=== PATIENT | male | born 1940 | race Caucasian/White ===

== ENCOUNTER 2019-09-22 09:29 | Inpatient (IN) | payer MEDICARE, BC, SELFPAY ==
[2019-09-22] VITALS (8 sets, daily range): BP systolic 145–160; BP diastolic 74–89; PULSE 66–104; RESP 17–21; TEMP 36.5–37.1; O2SAT 94–100
--- NOTE | ~2019-09-22 | XR_ITS ---
EXAMINATION: XR chest port-a-cath/central DATE: 09/24/2019 11:11 INDICATION: Central line placement. TECHNIQUE: A single frontal view of the chest was obtained. COMPARISON: Chest single view 09/22/2019, CT abdomen and pelvis 09/22/2019 FINDINGS: There are bilateral perihilar interstitial and airspace opacities. No pleural effusion or p neumothorax. The heart size is normal. A right internal jugular central venous catheter is seen with tip at the superior cavoatrial junction. IMPRESSION: 1. Central line tip at superior cavoatrial junction. 2. Worsened diffuse lung disease, likely mild pulmonary edema. Reviewed, dictated and finalized at location A.
--- NOTE | ~2019-09-22 | XR_ITS ---
XR fl guide central line place 09/24/2019 11:03 Indication: Dialysis catheter insertion. Procedure: 3 fluoroscopic images. 8.8 seconds of fluoroscopy. Comparison: No prior studies for comparison. Findings: There is a dual-lumen large bore central venous catheter, tips near the cavoatrial junction . Please refer to procedural report for details. Impression: 1: Central venous catheter tips near the cavoatrial junction. Reviewed, dictated and finalized at location A. Impression: 1: Central venous catheter tips near the cavoatrial junction.
--- NOTE | ~2019-09-22 | US_ITS ---
EXAMINATION: US biopsy renal DATE: 09/26/2019 13:42 INDICATION: Acute kidney injury. TECHNIQUE: The procedure including the risks, benefits, and alternatives was discussed with the patie nt. Risks discussed included bleeding and infection. The patient understood the risks and agreed to p roceed. A timeout was performed to verify the patient's name, date of , and procedure to be p erformed. The skin overlying the left kidney was prepped and draped in usual sterile fashion. Anest hetic was administered with 1% lidocaine subcutaneously. An 18 gauge core biopsy needle was then use d to obtain 3 core biopsy specimens under continuous sonographic guidance. The entry site was cleaned and dressed. There were no immediate complications. FINDINGS: Ultrasound images demonstrate the needle in the kidney. IMPRESSION: 1. Ultrasound-guided random left kidney core needle biopsy. Reviewed, dictated and finalized at location A.
--- NOTE | ~2019-09-22 | CT_ITS ---
EXAMINATION: CT abdomen pelvis wo con DATE: 09/22/2019 10:59 INDICATION: Abdominal pain and cough TECHNIQUE: Computed tomography (CT) of the abdomen and pelvis was performed without intravenous contr ast. The dose-length product (DLP) was 1143.02 mGy-cm. Automated exposure control and iterative recon struction technique were employed. COMPARISON: 09/20/2017 FINDINGS: There are small pleural effusions. Cardiomegaly is noted. There is interlobular septal thic kening of the visualized lung bases with patchy groundglass and nodular opacities. There is calcified coronary artery atherosclerosis. Also noted is calcification of the mitral valve. The liver, spleen, pancreas, gallbladder, and left adrenal gland are normal. 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 Cysts of the kidneys measure up to 2.5 cm on the right. No pathologically enla rged abdominal or pelvic lymph nodes are identified. There is no free intraperitoneal gas or evidence of bowel obstruction. The prostate is markedly enlarged. There is circumferential thickening of the bladder wall. A small volume of pelvic ascites is present. There is a small right inguinal hernia con taining a short segment of nonobstructed small bowel. Also noted is an umbilical hernia containing a short segment of nonobstructed small bowel. There is severe lumbar spondylosis. There are bridging os teophytes at multiple levels in the visualized thoracic spine, consistent with diffuse idiopathic ske letal hyperostosis (DISH). IMPRESSION: 1. Small pleural effusions, interlobular septal thickening, and groundglass and nodular opacities of the visualized lung bases, suggestive pulmonary edema. 2. Small umbilical and right inguinal hernias containing short segments of nonobstructed small bowel. 3. Circumferential bladder wall thickening, likely reflecting chronic outlet obstruction. Reviewed, dictated and finalized at location A. IMPRESSION: 1. Small pleural effusions, interlobular septal thickening, and groundglass and nodular opacities of the visualized lung bases, suggestive pulmonary edema. 2. Small umbilical and right inguinal hernias containing short segments of nono bstructed small bowel. 3. Circumferential bladder wall thickening, likely reflecting chronic outlet ob struction.
--- NOTE | ~2019-09-22 | XR_ITS ---
EXAMINATION: XR chest 1V portable INDICATION: Cough TECHNIQUE: Portable AP chest at 1004 hours COMPARISON: 03/18/2016 FINDINGS: There are minimal airspace opacities of the lung bases and right upper lung zone. No pleura l effusion or pneumothorax is identified. The cardiomediastinal silhouette is normal for technique. IMPRESSION: 1. Airspace opacities of the lung bases and right upper lung zone, consistent with atelectasis versus pneumonia. Reviewed, dictated and finalized at location A. IMPRESSION: 1. Airspace opacities of the lung bases and right upper lung zone, consistent w ith atelectasis versus pneumonia.
--- NOTE | ~2019-09-22 | US_ITS ---
US renal BI DATE: 09/22/2019 15:19 INDICATION: Elevated serum creatinine TECHNIQUE: Real-time imaging of the kidneys and urinary bladder COMPARISON: 09/22/2019 CT abdomen pelvis noncontrast examination FINDINGS: The right kidney measures 12.2 cm length, the left kidney 12.1 cm. There is a 2.5 cm cyst of the right kidney. 8mm left renal cyst is suggested. No hydronephrosis of either kidney is evident. Bladder is relatively evacuated, with catheter in place. There is prostate enlargement. IMPRESSION: No evidence of hydronephrosis of either kidney Renal cysts Prostate enlargement Reviewed, dictated and finalized at Location A. Reviewed, dictated and finalized at location A.
[2019-09-22 09:56] LABS: Basophils Percent Auto 0.4 % (0.2-1.2); Eosinophils Absolute Auto 0.2 K/mm3 (0-0.3); Eosinophils Percent Auto 1.9 % (0-4.4); Hematocrit 34.4 % (42.0-52.0); Hemoglobin 11.6 g/dL (14.0-18.0); Immature Granulocyte Absolute 0.02 K/mm3 (0.00-0.031); Immature Granulocyte Percent A 0.2 % (0-0.5); Lymphocytes Absolute Auto 0.98 K/mm3 (0.9-3.2); Lymphocytes Percent Auto 10.9 % (18.3-44.2); Mean Corpuscular HGB Conc 33.7 g/dl (32-36); Mean Corpuscular Hemoglobin 29.6 pg (26-34); Mean Corpuscular Volume 87.8 fl (80-100); Mean Platelet Volume 10.7 fl (7.4-10.4); Monocytes Absolute Auto 1.1 K/mm3 (0.1-0.6); Monocytes Percent Auto 11.9 % (2.6-8.5); Neutrophils Absolute Auto 6.7 K/mm3 (1.3-6.7); Neutrophils Percent Auto 74.7 % (45.5-73.1); Platelet Count Result 192 k/mm3 (150-375); Red Blood Count 3.92 M/mm3 (4.6-6.20); Red Cell Distribution Width 12.7 % (11.5-14.5)
--- NOTE | 2019-09-22 10:05 | PC.NURSE ---
Pt attempted to provide urine sample. not enough for sample
[2019-09-22 10:06] LABS: Prothrombin Time 13.1 Seconds (11.1-14.7)
[2019-09-22 10:07] LABS: Partial Thromboplastin Time 36.8 SECONDS (22.3-36.8)
[2019-09-22 10:15] LABS: Alanine Aminotransferase 15 U/L (4-50); Albumin Level 4.1 g/dL (3.5-5.1); Alkaline Phosphatase 83 U/L (38-126); Aspartate Amino Transferase 21 U/L (17-59); Bilirubin,Total 0.6 mg/dL (0.2-1.3); Blood Urea Nitrogen 78 mg/dL (9-20); Calcium 8.4 mg/dL (8.4-10.2); Carbon Dioxide 17 mmol/L (22-30); Chloride 97 mmol/L (98-107); Estimated CRCL calculation 5 ml/min; Estimated Glomerular Filt Rate 4; Glucose 114 mg/dL (75-110); Lipase 369 U/L (23-300); Potassium 5.5 mmol/L (3.4-5.0); Sodium 132 mmol/L (137-145)
[2019-09-22 10:16] LABS: Lactic Acid Reflex 1.5 mmol/L (0.7-2.1)
--- NOTE | 2019-09-22 10:36 | ED.URI ---
HPI - URI/Sore Throat General Chief Complaint: Upper Respiratory Infection Stated Complaint: N/V, cough and cold symptoms Time Seen by Provider: 09/22/19 09:32 Source: RN notes reviewed History of Present Illness HPI Narrative: Patient presents emergency department from home for nausea vomiting. Patient states symptoms began 2 days ago. He states yesterday he had several episodes of emesis. States he is also had a mild nonproductive cough and rhinorrhea. He denies any fevers or chills sore throat abdominal pain diarrhea or any other symptoms. Related Data Allergies Allergy/AdvReac Type Severity Reaction Status Date / Time No Known Allergies Allergy Unverified 09/22/19 09:40 Review of Systems Review of Systems: Narrative: Gen.: Denies fevers or chills ENT: Reports congestion, denies sore throat Respiratory: Denies shortness of breath reports cough CV: Denies chest pain or palpitations GI: Denies abdominal pain or diarrhea, reports nausea and vomiting Musculoskeletal: Denies back pain or muscle pain Neuro: Denies numbness, tingling, weakness or focal weakness Skin: Denies rash Except as documented, all other systems reviewed and negative [facility] Past Medical History Medical History (Updated 09/22/19 @ 13:30 by Cristóbal Menjivar DO) Acute kidney failure, unspecified Hypertension Type 2 diabetes mellitus without complication, without long-term current use of insulin Family History Family History (Updated 01/23/14 @ 07:13 by DOCTOR UNKNOWN) Father Hypertension Family history of coronary artery disease Social History Social History Smoking status: Smoker, status unknown Alcohol intake: current Gender identity (if verbalized by the patient): Male Exam Narrative: Exam Narrative: APPEARANCE: No acute distress, nontoxic, resting in bed EYES: PERRL HEENT: Normocephalic, atraumatic, oromucosa dry RESPIRATORY: No respiratory distress Clear to auscultation bilaterally with no rhonchi wheezing or rales. CARDIOVASCULAR: Regular rate and rhythm without murmurs rubs or gallops. ABDOMINAL: Soft, nontender, nondistended, no rebound or guarding MUSCULOSKELETAl: Moves all extremities. No clubbing, cyanosis or edema. NEURO: Awake and alert. Following commands, speech normal, no focal deficits SKIN:: Warm, dry. No rashes lesions or abrasions PSYCHIATRIC: Normal affect/mood, Course Course Emergency Course: Discussed with Dr. Nielsen presentation work-up. Dr. Nielsen came to emergency department to see the patient. At this time recommends patient receive Lasix 40 mg as the patient does appear to be in heart failure with no further IV fluids at this time. Request Kayexalate Discussed with Dr. Kang presentation work-up. Agrees with admission at this time Discussed with patient and family results of workup and diagnosis. Discussed need for admission. Patient and family understand and agree to current treatment plan Vital Signs Vital signs: Vital Signs Temperature 97.7 F 09/22/19 09:34 Pulse Rate 66 09/22/19 09:34 Respiratory Rate 21 H 09/22/19 09:34 Blood Pressure 160/74 H 09/22/19 09:34 Pulse Oximetry 98 09/22/19 09:34 Temperature 97.7 F 09/22/19 09:34 Pulse Rate 67 09/22/19 13:20 Respiratory Rate 17 09/22/19 13:20 Blood Pressure 154/83 H 09/22/19 13:20 Pulse Oximetry 97 09/22/19 13:20 MDM - URI/Sore Throat Lab Data Result diagrams: 09/22/19 09:48 09/22/19 09:48 Labs: Lab Results 09/22/19 09/22/19 09/22/19 Range/Units 09:48 09:48 09:48 WBC 9.0 (4.5-10.0) K/mm3 RBC 3.92 L (4.6-6.20) M/mm3 Hgb 11.6 L (14.0-18.0) g/dL Hct 34.4 L (42.0-52.0) % MCV 87.8 (80-100) fl MCH 29.6 (26-34) pg MCHC 33.7 (32-36) g/dl RDW 12.7 (11.5-14.5) % Plt Count 192 (150-375) k/mm3 MPV 10.7 H (7.4-10.4) fl Immature Gran % (Auto) 0.2 (0-0.5) % Neut %
--- NOTE | 2019-09-22 10:50 | PM.CNNEP ---
Assessment and Plan Assessment and plan (1) Acute kidney failure, unspecified: Code(s): N17.9 - Acute kidney failure, unspecified Status: Acute Assessment and Plan: Shane has acute kidney injury. He has a history of BPH but it does not sound like he had critical symptoms before all this started. The patient has some congestion poor appetite weakness and nausea. All of this could be because of the kidneys. He says he does see routinely and has blood in urine tests done and has never been told he any problems with his kidneys or with proteinuria. He did have a creatinine of 1.5 in 2018. It is quite early in his hospital stay, as he is still in the emergency room. So it is hard to say exactly what is causing his acute kidney injury. Possibilities include: Obstruction. He has BPH and so could have some obstruction. Possibly this happened gradually and slowly and so he has few symptoms from it. Vascular diseases. This is unlikely because he does not have any flank pain or elevation of liver enzymes. Intrinsic disease such as glomerulonephritis, Allergy.. We will check urine electrolytes urine eosinophils and urinalysis. Infiltrative diseases such as multiple myeloma could always be in the background. Pre renal azotemia is possible but it sounds like he must of had some kidney issues going on before Monday. It would be hard to believe that he had a creatinine of 1.5 on and 13 now. (2) Type 2 diabetes mellitus without complication, without long-term current use of insulin: Code(s): E11.9 - Type 2 diabetes mellitus without complications Status: Acute Assessment and Plan: The patient sugars have been better lately. He is on metformin. Likely he stopped taking it 2 days ago and is lactic acid is normal. (3) Hypertension: Code(s): I10 - Essential (primary) hypertension Status: Acute Assessment and Plan: Blood pressure is well controlled. (4) Benign non-nodular prostatic hyperplasia: Code(s): N40.0 - Benign prostatic hyperplasia without lower urinary tract symptoms Status: Acute Assessment and Plan: He does not have much in the way of symptoms here. We will see what his CT scan shows and what happens after the Gandhi is put in. (5) Hypothyroidism: Code(s): E03.9 - Hypothyroidism, unspecified Status: Acute Assessment and Plan: He is taking supplements for this. History of Present Illness Reason for Consult Consult date: 09/22/19 Chief Complaint Chief complaint: N/V, cough and cold symptoms History of Present Illness Narrative: Shane is a very pleasant gentleman has multiple medical problems including diabetes, hypertension, and hypothyroidism. The patient says that he was feeling well until Monday when he started having some congestion in his chest. He also had poor appetite and just general feeling of weakness. He says that he usually drinks 48 oz of water soon as he wakes up however on Monday morning he did not drink this because he had mild nausea and was not sure he could keep it down. He has not had much to drink or eat since then. He has continued to have the congestion. He coughs a little bit and brings up mucus but nothing bloody or dark. He has taken his temperature 0 several times over the weekend and he has not had a fever. He came to the ER today because he was afraid would get worse. In the ER he was evaluated found to have a creatinine of 13. The patient denies any bloody urine, foamy urine, kidney stones, or bladder infections. He has been urinating pretty well but not a whole lot over the last couple of days. He denies any hemoptysis, epistaxis, sores in his mouth, skin rash, malar rash, or joint pains. He says that he has not been taking his blood blood pressure or diabetes medications in last 2 days. His diabetes has been well controlled. He is just on oral agents for this. His blood pressure
--- NOTE | 2019-09-22 11:11 | ECG_ITS ---
Measurements Intervals [place] Rate: 70 P: 88 DE: 215 QRS: -25 QRSD: 84 T: 1 QT: 426 QTc: 460 Interpretive Statements SINUS RHYTHM WITH FIRST DEGREE AV BLOCK BORDERLINE T WAVE ABNORMALITY- INFERIOR LEADS BASELINE ARTIFACT- I, II, AVF ABNORMAL ECG Electronically Signed On 09-22-2019 15:04:10 CDT by Jose L Kenney D.O.
[2019-09-22] MEDS: SODIUM CHLORIDE 0.9% IV 1,000 ML 999 ML IV CONT (11:25)
[2019-09-22 11:34] LABS: Add Urine Microscopic? YES; Appearance Urine Clear (Clear); Bacteria Urine Trace /hpf; Bilirubin Urine Negative (Negative); Blood Urine 2+ (Negative); Color Urine Straw (Yellow); Glucose Urine UA 1+ mg/dL (Negative); Ketones Urine Negative (Negative); Leukocyte Esterase Ur Negative LEU/UL (Negative); Nitrate Urine Negative (Negative); Protein Urine 2+ mg/dL (Negative); RBC Urine 51-75 /hpf (0-2); Specific Grav Ur 1.011 (1.001-1.035); Urobilinogen Urine Negative mg/dL (<2.0); WBC Urine 0-3 /hpf
[2019-09-22 11:40] LABS: NT Pro B Type Natriuretic Pept 7630 PG/ML (5-100); Troponin I 0.012 ng/mL (0.000-0.034)
[2019-09-22] MEDS: SODIUM POLYSTYRENE SULFONONATE 15 GM/60 ML BTL 30 GM PO ×2 (11:43→22:11)
[2019-09-22] MEDS: FUROSEMIDE INJ 40 MG/4 ML VIAL IV PUSH (11:44)
[2019-09-22 12:01] LABS: Erythrocyte Sedimentation Rate 61 mm/hr (0-20)
[2019-09-22 13:13] LABS: Creatine Kinase 177 U/L (55-170)
--- NOTE | 2019-09-22 13:45 | ADMGEN ---
This patient, Shane Galdamez, was admitted to 3 Med Surg Room 331-01. Patient/family oriented to hospital policies and general routines including ID bracelet, bed and alarms, visiting hours, pain management, procedures, bathroom and other care routines, personal items, smoking policy, room service/diet, and visiting hours. Valuables list has been completed. Information on how to activate the Rapid Response Team has been discussed. Patient/Family are encouraged to report perceived risks to care and to ask questions if they do not understand what they are told or what they should do.
[2019-09-22 16:42] LABS: Blood Urea Nitrogen 78 mg/dL (9-20); Calcium 7.8 mg/dL (8.4-10.2); Carbon Dioxide 16 mmol/L (22-30); Chloride 98 mmol/L (98-107); Estimated CRCL calculation 5 ml/min; Estimated Glomerular Filt Rate 4; Glucose 100 mg/dL (75-110); Potassium 6.1 mmol/L (3.4-5.0); Sodium 132 mmol/L (137-145)
--- NOTE | 2019-09-22 18:10 | PM.IMHP ---
H&P: HPI History of Present Illness Chief complaint: Acute renal failure/hyperkalemia/CHF Narrative: Shane Galdamez is a 79 year old male who has not had any previous history of congestive heart failure. The patient does have seasonal allergies and typically gets injections. The patient has been having a lot of postnasal drainage and has been coughing. No fever chills or sore throat. Patient stated that Monday night he was vomiting and Monday he slept on and off most of the day when he woke up he had 1 episode of emesis. His appetite has been poor. He also had some diarrhea on Monday as well. Patient has had poor oral intake. He denies any previous history of any kidney disease.Was found to be 5.5 and is now 6.1. Creatinine 3.0 and now 3.10. Nephrology has seen the patient today. patient was given Kayexalate x2. He was given Lasix x1. He was given 1 L of IV fluids. Patient no longer has any nausea or vomiting. No evidence of hydronephrosis of either kidney. Renal cyst. Prostate enlargement. The patient denies having any problems with his prostate in the past. Airspace opacities in lung bases and right upper lobe lung zone consistent with atelectasis versus pneumonia. Patient was tested for covid 19. Date of service 09/22/2019. Review of Systems Review of Systems: All systems reviewed & are unremarkable except as noted in HPI and below Constitutional: Constitutional: Reports as per HPI and Reports no additional constitutional complaints Eyes: Eyes: Reports as per HPI and Reports no additional eye complaints ENT: Reports system reviewed and no additional complaints, except as documented and Reports Normal hearing present Cardiovascular: Cardiovascular: Reports no additional cardiovascular complaints Respiratory: Respiratory: Reports no additional respiratory complaints and Reports no additional respiratory complaints Gastrointestinal: Gastrointestinal: Reports as per HPI and Reports no additional gastrointestinal complaints Musculoskeletal: Musculoskeletal: Reports no additional musculoskeletal complaints Integumentary/Breasts: Skin/Breast: Reports system reviewed and no additional complaints, except as docu and Reports as per HPI Neurologic: Reports system reviewed and no additional complaints, except as documented, Reports as per HPI and Reports Normal hearing present Psychiatric: Psychiatric: Reports no additional psychiatric complaints and Reports as per HPI Endocrine: Endocrine: Reports no additional endocrine complaints Hematologic/Lymphatic: Hematologic/Lymphatic: Reports no additional hematologic/lymphatic complaints Allergic/Immunologic: Allergic/Immunologic: Reports no additional allergic/immunologic complaints PMFSH Past Medical History Medical History (Updated 09/22/19 @ 18:47 by Divya Rick NP) Acute kidney failure, unspecified Heart murmur Hypertension Type 2 diabetes mellitus without complication, without long-term current use of insulin Surgical History Surgical History (Updated 09/22/19 @ 18:23 by Divya Rick NP) H/O local excision of skin lesion 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 Unsure which type of cancer. S/P appendectomy S/P arthroscopic surgery of right knee S/P tonsillectomy and adenoidectomy Family History Family History Father Hypertension Family history of coronary artery disease Social History Social History (Updated 09/22/19 @ 18:25 by Divya Rick NP) Social History: The patient lives with his and he desires to have her as the durable power securities attorney for healthcare. He desires to be a full code. They have 3 children together. He is retired from the [employer] system. Patient used to smoke a pipe but stated he did and ?inhale . He denies any alcohol, marijuana use, or illicit drugs. He said he stop smoking a pipe in the 80s. Smoking status: Current every day smoker Tobacco type: pip
--- NOTE | 2019-09-22 21:30 | PC.NURSE ---
Spoke with Dr. Mathis about consult order. Physician requested renal US and asked if patient had carias. Relayed shift report of patient being continent and had been straight cathed in ER with bloody urine. This nurse was not informed that carias had been placed in ER. After reviewing the chart found renal US had already been ordered by Dr. Nielsen. Cancelled order by Dr. Mathis.
[2019-09-22 22:29] LABS: Blood Urea Nitrogen 83 mg/dL (9-20); Calcium 7.5 mg/dL (8.4-10.2); Carbon Dioxide 15 mmol/L (22-30); Chloride 98 mmol/L (98-107); Estimated CRCL calculation 5 ml/min; Estimated Glomerular Filt Rate 4; Glucose 128 mg/dL (75-110); Potassium 5.9 mmol/L (3.4-5.0); Sodium 128 mmol/L (137-145)
[2019-09-23] VITALS (12 sets, daily range): BP systolic 138–153; BP diastolic 69–77; PULSE 70–83; RESP 16–18; TEMP 36.4–36.9; O2SAT 94–97
--- NOTE | 2019-09-23 | ECHO_ITS ---
Patient Info Name: Shane Galdamez Age: 79 years : 1940 Gender: Male Ht: 70 in Wt: 209 lbs BSA: 2.19 m2 HR: 71 bpm BP: 150 / 69 mmHg Technical Quality: Fair Exam Date: 09/23/2019 1:55 PM Exam Location: [facility] Patient Status: Inpatient Admit Date: 09/22/2019 Staff Ordering Physician: Divya Rick NP Pct: Ca Márquez RDCS Attending Provider: Roxanna Wood PA-C Referring Physician: Merline SUNSHINE; Exam Type: CA echo doppler color flow Study Info Indications I50.40 - Unspecified combined systolic (congestive) and diastolic (congestive) heart failure R01.1 - Cardiac murmur, unspecified Complete two-dimensional, color flow and Doppler transthoracic echocardiogram is performed. Summary 1. Left ventricular chamber dimension is normal. 2. Left ventricular systolic function is normal, estimated at 65-70%. 3. The left ventricular diastolic function is abnormal. 4. E/e' 26 is significantly elevated. 5. Left atrial chamber dimension is mildly enlarged. 6. There is severe aortic valve sclerosis. 7. There is moderate aortic valve stenosis based on a peak velocity of 352 cm/s, mean gradient of 21 mmHg, and aortic valve area of 2.5 cm2. 8. The mitral valve has severely calcified posterior annulus. 9. There is mild mitral valve regurgitation. 10. There is trace tricuspid valve regurgitation. 11. Moderate pulmonary hypertension, estimated pulmonary arterial systolic pressure is 50 mmHg. Left Ventricle E/e' 26 is significantly elevated. Left ventricular chamber dimension is normal. Left ventricular systolic function is normal, estimated at 65-70%. The left ventricular diastolic function is abnormal. Right Ventricle Right ventricular chamber dimension is normal. Right ventricular systolic function is normal. Left Atria Left atrial chamber dimension is mildly enlarged. Right Atria Right atrial chamber dimension is normal. Aortic Valve There is moderate aortic valve stenosis based on a peak velocity of 352 cm/s, mean gradient of 21 mmHg, and aortic valve area of 2.5 cm2. Probably trileaflet aortic valve. The aortic valve is not well visualized. There is severe aortic valve sclerosis. There is no aortic valve regurgitation. Pulmonic Valve There is no pulmonic regurgitation. Mitral Valve The mitral valve has severely calcified posterior annulus. There is no mitral valve stenosis. There is mild mitral valve regurgitation. Tricuspid Valve There is trace tricuspid valve regurgitation. Moderate pulmonary hypertension, estimated pulmonary arterial systolic pressure is 50 mmHg. Pericardium/Pleural There is no pericardial effusion. Inferior Vena Cava Normal inferior vena cava with >50% collapse upon inspiration consistent with normal right atrial pressure, 5 mmHg. Aorta The aortic root size at the sinus of Valsalva is normal. Left Ventricular Outflow Tract Name Value Normal LVOT 2D LVOT Diameter 2.0 cm LVOT Doppler LVOT Peak Gradient 19 mmHg LVOT Mean Gradient 9 mmHg LVOT VTI
[2019-09-23 00:10] LABS: Free T4 Free Thyroxine Reflex 1.17 ng/dL (0.78-2.19)
[2019-09-23 00:49] LABS: Total Triiodothyronine (T3) 1.11 NG/ML (0.97-1.69)
[2019-09-23 02:43] LABS: Sodium Urine Random 100 meq/L
[2019-09-23 02:49] LABS: Total Protein Urine Random > 600 mg/dL
[2019-09-23] MEDS: LEVOTHYROXINE SODIUM 112 MCG TABLET PO (05:56)
[2019-09-23 06:25] LABS: Basophils Percent Auto 0.5 % (0.2-1.2); Eosinophils Absolute Auto 0.1 K/mm3 (0-0.3); Eosinophils Percent Auto 0.6 % (0-4.4); Hematocrit 37.3 % (42.0-52.0); Hemoglobin 11.8 g/dL (14.0-18.0); Immature Granulocyte Absolute 0.04 K/mm3 (0.00-0.031); Immature Granulocyte Percent A 0.5 % (0-0.5); Mean Corpuscular HGB Conc 31.6 g/dl (32-36); Mean Corpuscular Hemoglobin 29.2 pg (26-34); Mean Corpuscular Volume 92.3 fl (80-100); Mean Platelet Volume 10.6 fl (7.4-10.4); Monocytes Absolute Auto 1.2 K/mm3 (0.1-0.6); Monocytes Percent Auto 14.3 % (2.6-8.5); Neutrophils Absolute Auto 6.5 K/mm3 (1.3-6.7); Neutrophils Percent Auto 78.1 % (45.5-73.1); Platelet Count Result 174 k/mm3 (150-375); Red Blood Count 4.04 M/mm3 (4.6-6.20); Red Cell Distribution Width 12.9 % (11.5-14.5); White Blood Count 8.3 K/mm3 (4.5-10.0)
[2019-09-23 06:28] LABS: Blood Urea Nitrogen 86 mg/dL (9-20); Calcium 7.5 mg/dL (8.4-10.2); Carbon Dioxide 12 mmol/L (22-30); Chloride 98 mmol/L (98-107); Estimated CRCL calculation 5 ml/min; Estimated Glomerular Filt Rate 4; Glucose 127 mg/dL (75-110); Potassium 5.2 mmol/L (3.4-5.0); Sodium 128 mmol/L (137-145)
[2019-09-23 08:16] LABS: Glucose Point of Care 127 (65-105)
[2019-09-23 08:49] LABS: Glucose Point of Care 132 (65-105)
[2019-09-23] MEDS: AMLODIPINE BESYLATE 5 MG TABLET PO (08:52)
[2019-09-23 12:17] LABS: SARS-CoV-2 RNA PCR Negative
--- NOTE | 2019-09-23 12:23 | WPDURCON ---
Assessment and Plan Assessment and plan (1) Acute renal failure: Code(s): N17.9 - Acute kidney failure, unspecified Status: Acute Assessment and Plan: Does not appear to be urologic in origin. He had only 100 cc of residual when the Gandhi catheter was placed. Creatinine has not really improved with Gandhi catheter placement. He does not endorse significant BPH symptoms. He does not have hydronephrosis on ultrasound. Can continue Gandhi catheter for now to monitor urine output, but otherwise management of Gandhi per primary team. Urology Consult Note HPI Date Seen: 09/23/19 Requesting Physician: Roxanna Wood PA-C Primary Care Provider: Javier Gamez DO Consult Narrative Narrative: Shane Galdamez is a 79 year old male seen at the request of the hospitalist service here at [facility]. He has no other previous urologic history. He has been ill for the last several days with poor p.o. intake. This eventually prompted a visit to the emergency room. He was found to have hyperkalemia and a creatinine of 13. A Gandhi catheter was placed with only 100 cc residual. He does not endorse BPH symptoms. He states he voids well. He does not have a slow stream or history of urinary retention. His creatinine has not really improved with Gandhi catheter placement. Nephrology has been consulted. Review of Systems Review of Systems: All systems reviewed & are unremarkable except as noted in HPI and below Constitutional: Constitutional: Reports weakness Cardiovascular: Cardiovascular: Denies chest pain Respiratory: Respiratory: Reports cough and Reports dyspnea Gastrointestinal: Gastrointestinal: Reports diarrhea Genitourinary: Genitourinary: Denies hematuria, Denies dysuria, Denies urinary frequency and Denies urinary urgency Psychiatric: Psychiatric: Reports no additional psychiatric complaints [facility] Past Medical History Medical History (Updated 09/22/19 @ 18:47 by Divya Rick NP) Acute kidney failure, unspecified Heart murmur Hypertension Type 2 diabetes mellitus without complication, without long-term current use of insulin Surgical History Surgical History (Updated 09/22/19 @ 18:23 by Divya Rick NP) H/O local excision of skin lesion 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 Unsure which type of cancer. S/P appendectomy S/P arthroscopic surgery of right knee S/P tonsillectomy and adenoidectomy Family History Family History Father Hypertension Family history of coronary artery disease Social History Social History (Updated 09/22/19 @ 18:25 by Divya Rick NP) Social History: The patient lives with his and he desires to have her as the durable power insurance attorney for healthcare. He desires to be a full code. They have 3 children together. He is retired from the [employer]. Patient used to smoke a pipe but stated he did and ?inhale . He denies any alcohol, marijuana use, or illicit drugs. He said he stop smoking a pipe in the s. Smoking status: Current every day smoker Tobacco type: pipe Smoking end date: 09/19/79 Alcohol intake: current Drinks per week: 1 Substance use: never Living arrangements: with family Occupation/Education: retired Gender identity (if verbalized by the patient): Male Spiritual care concerns: No Agree to blood products: Yes Meds Home Medications and Allergies Home Medications Medication Instructions Recorded Confirmed Type linagliptin 5 mg tablet 5 mg PO QAM #90 tablet 05/09/19 09/22/19 Rx metformin 1,000 mg tablet 1,000 mg PO BID #180 tablet 06/26/19 09/22/19 Rx amlodipine 5 mg-valsartan 160 See Rx Instructions .ROUTE 08/02/19 09/22/19 Rx mg-hydrochlorothiazide 12.5 mg .COMPLEX #90 tablet tablet levothyroxine 112 mcg tablet See Rx Instructions .ROUTE 08/02/19 09/22/19 Rx .COMPLEX #90 tablet rosuvastatin 20 mg PO DAILY 09/22/19
[2019-09-23 12:45] LABS: Glucose Point of Care 126 (65-105)
--- NOTE | 2019-09-23 13:18 | PM.IMPN ---
Progress Note: A&P Assessment and Plan (1) Acute kidney failure, unspecified: Qualifiers: Acute renal failure type: unspecified Qualified Code(s): N17.9 - Acute kidney failure, unspecified Code(s): N17.9 - Acute kidney failure, unspecified Status: Acute Assessment and Plan: The patient presented with acute renal failure. His baseline Cr appears to be between 1.2-1.5. He had labs in 06/2019 with Cr 1.5 and GFR 44. At presentation, Cr was 13 and GFR 4. Nephrology is on board. He reports a proceeding episode of acute bronchitis in May while on a cruise. Renal ultrasound did not reveal any chronic kidney disease or hydronephrosis of either kidney. Prostate enlargement was visualized but he reports that he is relatively asymptomatic from this standpoint. There is a 2.5 cm cyst of the right kidney. 8mm left renal cyst is suggested. Cr continues to increase and is 13.8 today. Potassium is 5.2. Random urine protein and sodium are elevated. Additional studies are pending. C4 is WNL. He has microscopic hematuria. Urine output is decreased. Gandhi was placed with minimal output. Ddx includes glomerular disease and with hx of proceeding URI, he may have IgA nephropathy. Await nephrology recommendations, recommendations are greatly appreciated (2) Diastolic dysfunction: Code(s): I51.89 - Other ill-defined heart diseases Status: Chronic Assessment and Plan: He had an echo 11/2018 which revealed normal EF 65-70% with grade 1 diastolic dysfunction and mild aortic valve stenosis. BNP was elevated at 7630. He does not endorse recent dyspnea, orthopnea, or PND prior to when his other sx began. I suspect that his pulmonary edema is acute due to his acute renal failure. Repeat echo is pending (3) Type 2 diabetes mellitus without complication, without long-term current use of insulin: Code(s): E11.9 - Type 2 diabetes mellitus without complications Status: Chronic Assessment and Plan: Blood sugars reviewed and stable. Continue ACHS Continue SSI Continue to hold metformin due to acute renal failure (4) Essential (primary) hypertension: Code(s): I10 - Essential (primary) hypertension Status: Chronic Assessment and Plan: BP reviewed and elevated. Will resume amlodipine and uptitrate as needed Continue IV hydralazine PRN Continue to hold valsartan and HCTZ for now (5) Hypothyroidism: Qualifiers: Hypothyroidism type: unspecified Qualified Code(s): E03.9 - Hypothyroidism, unspecified Code(s): E03.9 - Hypothyroidism, unspecified Status: Chronic Assessment and Plan: TSH WNL. Continue levothyroxine (6) Mixed hyperlipidemia: Code(s): E78.2 - Mixed hyperlipidemia Status: Acute Assessment and Plan: Atorvastatin is on hold for now. (7) Acute hyperkalemia: Code(s): E87.5 - Hyperkalemia Status: Acute Assessment and Plan: Potassium was 5.5 at admission and increased to 6.1. He received kayexalate. Repeat potassium this AM was 5.2. Hyperkalemia is likey due to his acute renal failure. Repeat potassium later today (8) COVID-19 virus not detected: Status: Acute Assessment and Plan: COVID-19 testing is negative. The patient has no complaints of cough, fever, and chills. He has no leukocytosis. His chest CT suggests pulmonary edema which is consistent with his clinical presentation. Will continue to monitor closely. Discontinue azithromycin and ceftriaxone Subjective Date/time seen: 09/23/19 13:18 Interval history: Mr. Galdamez is seen and examined at bedside in follow-up for acute renal failure. He reports that he had a URI in May while on a cruise. He reports he had copious amounts of brown sputum production and was treated with penicillin. He reports that this resolved. He then notes onset of nausea, vomiting, and dyspnea.
[2019-09-23 16:27] LABS: Albumin Level 3.8 g/dL (3.5-5.1); Blood Urea Nitrogen 85 mg/dL (9-20); Calcium 7.8 mg/dL (8.4-10.2); Carbon Dioxide 18 mmol/L (22-30); Chloride 94 mmol/L (98-107); Glucose 123 mg/dL (75-110); Phosphorus 8.3 mg/dL (2.5-4.5); Sodium 129 mmol/L (137-145)
[2019-09-23 16:30] LABS: Estimated CRCL calculation 4 ml/min; Estimated Glomerular Filt Rate 3
--- NOTE | 2019-09-23 16:58 | PM.PNNEP ---
Progress Note: A&P Assessment and Plan (1) KIMBER (acute kidney injury): Code(s): N17.9 - Acute kidney failure, unspecified Status: Acute Assessment and Plan: significant deterioration in the last 2 months creatinine ~ 1.5mg/dl in June 2019 (presumably baseline) UA with blood and protein noted possible glomerulonephritis/autoimmune disease/vasculitis??? probably needs a renal biopsy for a definitive diagnosis however, given his elevated BUN and associated electrolyte issues, I think he would be better served with dialysis to optimize his status and decrease the risk of complications (bleeding) with renal biopsy patient aggreable to proceed with dialysis and renal biopsy (2) Acute hyperkalemia: Code(s): E87.5 - Hyperkalemia Status: Acute Assessment and Plan: s/p medical management better at this time due to #1 (3) Hypertension: Code(s): I10 - Essential (primary) hypertension Status: Chronic Assessment and Plan: reasonable control at this time follow trend of hemodynamics (4) Metabolic acidosis: Code(s): E87.2 - Acidosis Status: Acute Assessment and Plan: due to #1 follow trend (5) Diabetes: Code(s): E11.9 - Type 2 diabetes mellitus without complications Status: Acute Assessment and Plan: follow accuchecks on SSI Long and extensive discussion with patient (> 20 minutes) regarding my concerns of his rapidly declining kidney function; I discussed the issue of dialysis as well as a renal biopsy to help optimize his kidney function/electrolytes/uremia and to hopefully come-up with a definitive diagnosis in an expedient manner; I went over these procedures in detail and went over the risks, benefits, pros, cons...etc. and he is willing to proceed. I will consult Surgery for HD catheter placement and proceed with dialysis afterwards. Subjective Date/time seen: 09/23/19 16:58 No apparent distress noted at this time; renal function continues to deteriorate in association with oliguria; no issues or problems overnight or earlier this AM. Exam Narrative: Exam Narrative: General: WD/WN male in NAD Heart: normal S1 and S2; no rub Lungs: clear to auscultation Abdomen: soft, nontender, nondistended, positive bowel sounds Extremities: no cyanosis or clubbing; no edema Skin: warm and dry Objective Data Vital Signs Vital Signs: Vital Signs Temp Pulse Resp BP Pulse Ox 09/23/19 16:00 75 09/23/19 14:00 36.6 C 81 16 142/77 H 95 09/23/19 12:00 83 09/23/19 10:41 36.6 C 71 16 150/71 H 97 09/23/19 08:00 70 95 09/23/19 06:00 36.6 C 72 16 142/75 H 94 09/23/19 04:00 71 09/23/19 02:00 36.8 C 82 18 150/69 H 96 09/23/19 00:00 72 09/22/19 22:00 37.1 C 72 20 145/75 H 94 09/22/19 20:00 71 Intake/Output Intake/Output: Intake & Output 09/20/19 09/21/19 09/22/19 09/23/19 23:59 23:59 23:59 23:59 Intake Total 1000 1240 Output Total 100 200 Balance 900 1040 Meds/Results Medications: Active Medications Generic Name Dose Route Start Last Admin Trade Name Freq PRN Reason Stop Dose Admin Amlodipine Besylate 5 mg 09/23/19 09:00 09/23/19 08:52 Norvasc PO 5 mg QAM GAL Administration Dextrose 12.5 gm 09/22/19 19:03 Dextrose 50% Syringe IV PUSH PRN PRN Hypoglycemia Protocol Glucagon 1 mg 09/22/19 19:03 Glucagon For Inj IM PRN PRN Hypoglycemia Protocol Glucose 15 gm 09/22/19 19:03 Glutose 15 PO PRN PRN Hypoglycemia Protocol Hydralazine HCl 10 mg 09/22/19 18:50 Apresoline Hcl Inj IV PUSH Q8H PRN Blood Pressure - High Dextrose 1,000 mls @ 100 mls/hr 09/22/19 19:03 Dextrose 5% 1,000 Ml IVPB PRN PRN Hypoglycemia Protocol Insulin Aspart 2 - 5 units 09/23/19 08:00 09/23/19 12:47 Novolog SUB-Q Not Given TIDWM GAL
[2019-09-23 17:42] LABS: Glucose Point of Care 113 (65-105)
--- NOTE | 2019-09-23 18:57 | PM.CNGS ---
Assessment and Plan Assessment and plan (1) Acute kidney failure, unspecified: Qualifiers: Acute renal failure type: unspecified Qualified Code(s): N17.9 - Acute kidney failure, unspecified Code(s): N17.9 - Acute kidney failure, unspecified Status: Acute Assessment and Plan: unknown etiology, cont workup including likely kidney bx, will proceed c placement of HD access in am, d/w pt including risks, benefits, alternatives and he would like to proceed (2) Diabetes: Code(s): E11.9 - Type 2 diabetes mellitus without complications Status: Acute Assessment and Plan: cont mgmt per primary (3) Hypertension: Code(s): I10 - Essential (primary) hypertension Status: Chronic Assessment and Plan: cont mgmt per primary (4) Congestive heart failure: Code(s): I50.9 - Heart failure, unspecified Status: Acute Assessment and Plan: cont mgmt per primary History of Present Illness Consult details Consult date: 09/23/19 Reason for consult: other (renal failure) Requesting physician: Car Kim MD Narrative: Pt is a 79 y/o M that presented to hospital c/o worsening weakness, fatigue, poor appetite, malaise over the last few wks. Pt had extensive workup including labs that was significant for hyperkalemia and acute renal failure. Pt cont to have poor urine output and kidney fxn not improving c hydration. ARF of unknown etiology and pt will likely need kidney bx soon. Surgery consulted for placement of dialysis access. Review of Systems Constitutional: Constitutional: Denies anorexia, Denies chills, Reports fatigue, Denies headache(s), Reports lethargy, Denies malaise, Denies poor appetite, Reports weakness, Denies weight gain and Denies weight loss Eyes: Eyes: Denies loss of vision ENT: Denies dysphagia, Denies headache(s), Denies hearing loss and Denies sore throat Cardiovascular: Cardiovascular: Denies chest pain, Denies syncope, Denies irregular heart rhythm, Denies leg edema, Denies palpitations and Denies dyspnea Respiratory: Respiratory: Denies cough and Denies dyspnea Gastrointestinal: Gastrointestinal: Denies abdominal pain, Denies bloating, Denies change in bowel habits, Denies change in stool character, Denies constipation, Denies dysphagia, Denies heartburn, Denies diarrhea, Reports nausea and Reports vomiting Genitourinary: Genitourinary: Denies hematuria, Denies dysuria, Denies flank pain, Denies urinary frequency and Denies urinary urgency Musculoskeletal: Musculoskeletal: Denies myalgias, Denies arthralgias and Denies muscle cramps Integumentary/Breasts: Skin/Breast: Denies non-healing lesions and Denies rash Neurologic: Denies syncope, Denies headache(s) and Denies loss of vision Endocrine: Endocrine: Denies change in body appearance and Denies fatigue Hematologic/Lymphatic: Hematologic/Lymphatic: Denies easy bleeding, Denies easy bruising and Denies lymphadenopathy [facility] Past Medical History Medical History Acute kidney failure, unspecified Heart murmur Hypertension Type 2 diabetes mellitus without complication, without long-term current use of insulin Surgical History Surgical History H/O local excision of skin lesion 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 Unsure which type of cancer. S/P appendectomy S/P arthroscopic surgery of right knee S/P tonsillectomy and adenoidectomy Family History Family History Father Hypertension Family history of coronary artery disease Social History Social History Social History: The patient lives with his and he desires to have her as the durable power trade mark attorney for healthcare. He desires to be a full code. They have 3 children together. He is retired from the [employer]
[2019-09-23 21:54] LABS: Glucose Point of Care 118 (65-105)
[2019-09-24] VITALS (33 sets, daily range): BP systolic 105–171; BP diastolic 49–91; PULSE 64–90; RESP 10–24; TEMP 36.4–37.2; O2SAT 92–98
[2019-09-24 06:00] LABS: Hematocrit 32.9 % (42.0-52.0); Hemoglobin 11.4 g/dL (14.0-18.0); Mean Corpuscular HGB Conc 34.7 g/dl (32-36); Mean Corpuscular Hemoglobin 29.5 pg (26-34); Mean Platelet Volume 10.5 fl (7.4-10.4); Platelet Count Result 193 k/mm3 (150-375); Red Blood Count 3.87 M/mm3 (4.6-6.20); Red Cell Distribution Width 12.5 % (11.5-14.5); White Blood Count 8.1 K/mm3 (4.5-10.0)
[2019-09-24 06:23] LABS: Alanine Aminotransferase 12 U/L (4-50); Albumin Level 3.7 g/dL (3.5-5.1); Alkaline Phosphatase 71 U/L (38-126); Aspartate Amino Transferase 22 U/L (17-59); Bilirubin,Total 0.7 mg/dL (0.2-1.3); Blood Urea Nitrogen 94 mg/dL (9-20); Calcium 7.7 mg/dL (8.4-10.2); Carbon Dioxide 15 mmol/L (22-30); Chloride 94 mmol/L (98-107); Cholesterol 126 mg/dL (0-200); Glucose 109 mg/dL (75-110); HDL Direct 27 mg/dL; Sodium 128 mmol/L (137-145); Triglycerides 140 mg/dL (<150)
[2019-09-24 06:26] LABS: Estimated CRCL calculation 4 ml/min; Estimated Glomerular Filt Rate 3
[2019-09-24 06:30] LABS: LDL Cholesterol Direct 60 mg/dL
[2019-09-24 07:02] LABS: Hepatitis B Surface Antigen Negative (Negative)
[2019-09-24 07:08] LABS: HAV RESULT Negative (Negative); Hepatitis B Core IgM Result Negative (Negative)
[2019-09-24 07:19] LABS: Hepatitis B Surface Anti Res Negative; Hepatitis C Virus Antibody Negative (Negative)
[2019-09-24] MEDS: AMLODIPINE BESYLATE 5 MG TABLET PO (08:01)
[2019-09-24] MEDS: SODIUM CHLORIDE 0.9% IV 500 ML 30 ML IV CONT (09:00)
--- NOTE | 2019-09-24 09:00 | WPDANESEPPF ---
Anes - Initial Pre Proc Eval Procedure: Operation Date: 09/24/19 10:00 Proposed Procedures p Insertion Duraflow Permacath Dialysis - Judith Trinh MD Date/Time: 09/24/19 09:00 Surgeon: Paige Centeno PA-C Pre Op Diagnosis: Acute renal failure/hyperkalemia/CHF Patient Data Age: 79 Gender: M Height: 5 ft 10 in Weight: 95 kg Last Vital Signs Temp 36.6 C 09/24/19 06:00 Pulse 74 09/24/19 08:00 Resp 16 09/24/19 06:00 BP 149/70 H 09/24/19 06:00 Pulse Ox 94 09/24/19 06:00 Allergies Allergy/AdvReac Type Severity Reaction Status Date / Time No Known Allergies Allergy Unverified 09/22/19 09:40 Home Medications Medication Instructions Recorded Confirmed Type linagliptin 5 mg tablet 5 mg PO QAM #90 tablet 05/09/19 09/22/19 Rx metformin 1,000 mg tablet 1,000 mg PO BID #180 tablet 06/26/19 09/22/19 Rx amlodipine 5 mg-valsartan 160 See Rx Instructions .ROUTE 08/02/19 09/22/19 Rx mg-hydrochlorothiazide 12.5 mg .COMPLEX #90 tablet tablet levothyroxine 112 mcg tablet See Rx Instructions .ROUTE 08/02/19 09/22/19 Rx .COMPLEX #90 tablet rosuvastatin 20 mg PO DAILY 09/22/19 09/22/19 History Laboratory Tests 09/22/19 09/23/19 09/23/19 11:05 12:36 16:05 WBC RBC Hgb Hct MCV MCH MCHC RDW Plt Count MPV Sodium 129 mmol/L L mmol/L (137-145) Potassium 5.0 mmol/L mmol/L (3.4-5.0) Chloride 94 mmol/L L mmol/L (98-107) Carbon Dioxide 18 mmol/L L mmol/L (22-30) BUN 85 mg/dL H mg/dL (9-20) Creatinine 15.70 mg/dL H mg/dL (0.7-1.3) Estim Creat Clear Calc 4 ml/min ml/min Estimated GFR 3 L (59 - ) Glucose 123 mg/dL H mg/dL (75-110) POC Capillary Glucose 126 mg/dl H mg/dl (65-105) Calcium 7.8 mg/dL L mg/dL (8.4-10.2) Phosphorus 8.3 mg/dL H mg/dL (2.5-4.5) Total Bilirubin AST ALT Alkaline Phosphatase Total Protein Albumin 3.8 g/dL g/dL (3.5-5.1) Wkxuj-4-Zbfjjkhkr Qakwo-2-Uolnijykg Kkry-1-Wqmflcpb Bfux-4-Xkmuqihy Gamma Globulins Abnorm Protein Band 1 Abnorm Protein Band 3 PEP Interpretation Triglycerides Cholesterol LDL Cholesterol Direct HDL Direct Ur Random Creatinine U Random Total Protein Protein/Creatinin Ratio Urine Albumin U Zrcfs-8-Yumfubip U Ywpou-4-Gtmxlzsr U Beta Globulin U Gamma Globulin U Abnormal Prot Band 1 U Abnormal Prot Band 2 U Abnormal Prot Band 3 Urine PEP Interpret Cryoglobulin % Cryoglobulin Qualit HERBERT Screen ANCA Screen Sm ([place]) Antibody Anti-DNA Antibody Glomerular Base Memb Ab Hepatitis A IgM Ab Hep Bs Antigen Hep Bs Antibody Hep B Core IgM Ab Hepatitis C Ab Screen SARS-CoV-2 RNA (RT-PCR) Negative 09/23/19 09/23/19 09/24/19 17:39 20:41 05:28 WBC RBC Hgb Hct MCV MCH MCHC RDW Plt Count MPV Sodium Potassium Chloride Carbon Dioxide BUN Creatinine Estim Creat Clear Calc Estimated GFR Glucose POC Capillary Glucose 113 mg/dl H mg/dl 118 mg/dl H mg/dl (65-105) (65-105) Calcium Phosphorus Total Bilirubin AST
--- NOTE | 2019-09-24 09:02 | PC.NURSE ---
Pt to or per bed @ 0367. IV MARLEE.
[2019-09-24 09:05] LABS: Glucose Point of Care 107 (65-105)
[2019-09-24] MEDS: ceFAZolin 2 GM/D5W 50 ML 2 GM/50 ML BAG IVPB (10:12)
[2019-09-24] MEDS: LIDO 1%/EPINEPHRINE 1:100,000 20 ML VIAL INFILTRATE (10:47)
[2019-09-24] MEDS: HEPARIN SODIUM 5,000 UNITS/ML VIAL 5000 UNITS IRRIGATION (10:48)
[2019-09-24] MEDS: HEPARIN SODIUM, PORCINE 10,000 UNITS/10 ML VIAL 10000 UNITS IV PUSH (10:49)
--- NOTE | 2019-09-24 11:00 | P.OP_ITS ---
Procedure Note - Detailed Date of procedure: 09/24/19 Pre-op diagnosis: Acute renal failure/hyperkalemia/CHF Post-op diagnosis: same Procedure performed: placement of RIJ tunneled HD catheter 28 cm under both U/S and fluroscopic guidance Description of procedure: Patient was taken to the operating room and placed in the supine position. After adequate induction of laryngeal mask anesthesia, the patient was prepped and draped in normal sterile fashion. A time-out was then done to verify the patient's identity as well as the procedure being performed. I began by using the SonoSite and locating the right internal jugular vein. Once this was done, I localized the overlying skin. I then made a small incision in the skin. I then gained access into the right internal jugular vein with an 18 gauge needle. At this point, I threaded the guidewire into the right internal jugular vein. Placement of the guidewire was confirmed by both ultrasound and fluoroscopic guidance. I then went ahead and measured the 28 cm tunneled dialysis catheter to our stick site in the right neck. I then localized the tract going from the right chest to the right neck. I then made a small incision in the right chest and tunneled the catheter to the right neck. I then serially dilated the right internal jugular vein under fluoroscopic guidance. Once adequately dilated, I placed dilating sheath over the guidewire into the right internal jugular vein under fluoroscopic visualization. Once this was noted to be in good position, I removed both the guidewire and dilator, now just leaving the sheath in the vein. I then went ahead and fed the previously tunneled catheter into the sheath. Once the catheter was fed and positioned correctly, I went ahead and peeled the sheath away. Final fluoroscopic view showed the catheter in good position from its insertion point in the right chest to its termination in the right atrial caval junction. It was noted there was no kinking of the catheter. I was able to easily draw and flush from both ports of the catheter. I placed 2.2 and 2.3 cc of final heparin flush into each port as marked. The catheter was then sutured into place and the incision in the neck was closed with 4 O Monocryl s ubcuticular suture. The patient tolerated the procedure well and will be transferred to the recovery room in stable condition. Sterile dressing was placed on the catheter. Portable chest x-ray will be done in the recovery. Implants: 28 cm duraflow tunneled HD cath Anesthesia: GLMA Surgeon: Judith Trinh MD Estimated blood loss (mL): 5 Drains: No Packing: No Pathology: none sent Complications: No immediate complications Condition: stable Disposition: PACU Findings: first stick access in [facility] under U/S guidance
--- NOTE | 2019-09-24 11:17 | SUR.PHASEI ---
1110 radiology at bedside for chest xray of rt upper chest for line placement
[2019-09-24 11:24] LABS: Glucose Point of Care 123 (65-105)
--- NOTE | 2019-09-24 12:45 | PC.NURSE ---
Patient returned from OR per bed.
--- NOTE | 2019-09-24 15:07 | PM.IMPN ---
Progress Note: A&P Assessment and Plan (1) Acute kidney failure, unspecified: Qualifiers: Acute renal failure type: unspecified Qualified Code(s): N17.9 - Acute kidney failure, unspecified Code(s): N17.9 - Acute kidney failure, unspecified Status: Acute Assessment and Plan: The patient presented with acute renal failure. His baseline Cr appears to be between 1.2-1.5. He had labs in 06/2019 with Cr 1.5 and GFR 44. At presentation, Cr was 13 and GFR 4. Nephrology is on board. He reports a proceeding episode of acute bronchitis in May while on a cruise. Renal ultrasound did not reveal any chronic kidney disease or hydronephrosis of either kidney. Prostate enlargement was visualized but he reports that he is relatively asymptomatic from this standpoint. There is a 2.5 cm cyst of the right kidney. 8mm left renal cyst is suggested. Cr continues to increase and is 16.0 today. Potassium is 5.0. Random urine protein and sodium are elevated. Additional studies are pending. C4 is WNL. He has microscopic hematuria. Nephrology is following and recommendations are greatly appreciated Underwent surgical insertion of tunneled HD catheter by general surgery this morning Plan for hemodialysis this afternoon Plan for renal biopsy in the near future following dialysis Continue to monitor kidney function Avoid nephrotoxic medications and renally dose medications (2) Diastolic dysfunction: Code(s): I51.89 - Other ill-defined heart diseases Status: Chronic Assessment and Plan: He had an echo 11/2018 which revealed normal EF 65-70% with grade 1 diastolic dysfunction and mild aortic valve stenosis. BNP was elevated at 7630. I suspect that his pulmonary edema is acute due to his acute renal failure. CXR today shows worsened pulmonary edema. Echo reveals unchanged EF and moderate . He denies dyspnea or orthopnea. Continue to monitor Avoid IV fluids given volume status Avoid diuresis given kidney function. Will reassess volume status following dialysis. Weigh patient daily (3) Type 2 diabetes mellitus without complication, without long-term current use of insulin: Code(s): E11.9 - Type 2 diabetes mellitus without complications Status: Chronic Assessment and Plan: Blood sugars reviewed today and stable at 193. Continue accu-checks ACHS, SSI, and hypoglycemic protocol Continue to hold metformin due to acute renal failure (4) Essential (primary) hypertension: Code(s): I10 - Essential (primary) hypertension Status: Chronic Assessment and Plan: BP evaluated today and stable at 149/70. Continue amlodipine. Continue IV hydralazine PRN Continue to hold valsartan and HCTZ for now (5) Hypothyroidism: Qualifiers: Hypothyroidism type: unspecified Qualified Code(s): E03.9 - Hypothyroidism, unspecified Code(s): E03.9 - Hypothyroidism, unspecified Status: Chronic Assessment and Plan: TSH WNL. Continue levothyroxine (6) Mixed hyperlipidemia: Code(s): E78.2 - Mixed hyperlipidemia Status: Acute Assessment and Plan: Atorvastatin is on hold for now. (7) Acute hyperkalemia: Code(s): E87.5 - Hyperkalemia Status: Acute Assessment and Plan: Potassium was 5.5 at admission and increased to 6.1. He received kayexalate. Hyperkalemia is likey due to his acute renal failure. Repeat potassium this AM was 5.0. Continue to monitor potassium level (8) COVID-19 virus not detected: Status: Acute Assessment and Plan: COVID-19 testing is negative. The patient has no complaints of cough, fever, and chills. He has no leukocytosis. His chest CT suggests pulmonary edema which is consistent with his clinical presentation. Will continue to monitor closely. Azithromycin and ceftriaxone discontinued on 09/22. Subjective Date/time seen: 09/24/19 15:07 Interval h
--- NOTE | 2019-09-24 15:53 | PC.NURSE ---
Patient to dialysis per bed.
[2019-09-24 17:23] LABS: Eosinophil Urine 2 % eos
[2019-09-24] MEDS: HEPARIN SODIUM 1,000 UNITS/ML VIAL 5000 UNITS (19:15)
--- NOTE | 2019-09-24 19:30 | PC.NURSE ---
Patient taken back to his room from dialysis via bed.
[2019-09-24] MEDS: metFORMIN HCL 500 MG TABLET 1000 MG PO (19:55)
[2019-09-24 21:35] LABS: Glucose Point of Care 103 (65-105)
[2019-09-25] VITALS (23 sets, daily range): BP systolic 130–161; BP diastolic 66–84; PULSE 70–85; RESP 16–18; TEMP 36–37; O2SAT 94–100
[2019-09-25 06:08] LABS: Hematocrit 33.4 % (42.0-52.0); Hemoglobin 11.4 g/dL (14.0-18.0); Mean Corpuscular HGB Conc 34.1 g/dl (32-36); Mean Corpuscular Hemoglobin 29.2 pg (26-34); Mean Corpuscular Volume 85.4 fl (80-100); Mean Platelet Volume 10.4 fl (7.4-10.4); Platelet Count Result 196 k/mm3 (150-375); Red Blood Count 3.91 M/mm3 (4.6-6.20); Red Cell Distribution Width 12.5 % (11.5-14.5); White Blood Count 7.1 K/mm3 (4.5-10.0)
[2019-09-25 06:23] LABS: Alanine Aminotransferase 11 U/L (4-50); Albumin Level 3.8 g/dL (3.5-5.1); Alkaline Phosphatase 66 U/L (38-126); Aspartate Amino Transferase 25 U/L (17-59); Bilirubin,Total 0.7 mg/dL (0.2-1.3); Blood Urea Nitrogen 66 mg/dL (9-20); Calcium 7.3 mg/dL (8.4-10.2); Carbon Dioxide 22 mmol/L (22-30); Chloride 92 mmol/L (98-107); Estimated CRCL calculation 6 ml/min; Estimated Glomerular Filt Rate 5; Glucose 107 mg/dL (75-110); Potassium 4.3 mmol/L (3.4-5.0); Sodium 128 mmol/L (137-145)
[2019-09-25 07:52] LABS: Glucose Point of Care 113 (65-105)
[2019-09-25] MEDS: metFORMIN HCL 500 MG TABLET 1000 MG PO (08:22)
[2019-09-25] MEDS: ROSUVASTATIN 10 MG TABLET 20 MG PO (08:22)
[2019-09-25] MEDS: AMLODIPINE BESYLATE 5 MG TABLET PO (08:22)
[2019-09-25] MEDS: LEVOTHYROXINE SODIUM 112 MCG TABLET PO (08:25)
--- NOTE | 2019-09-25 11:20 | PM.IMPN ---
Progress Note: A&P Assessment and Plan (1) Acute kidney failure, unspecified: Qualifiers: Acute renal failure type: unspecified Qualified Code(s): N17.9 - Acute kidney failure, unspecified Code(s): N17.9 - Acute kidney failure, unspecified Status: Acute Assessment and Plan: The patient presented with acute renal failure. His baseline Cr appears to be between 1.2-1.5. He had labs in 06/2019 with Cr 1.5 and GFR 44. At presentation, Cr was 13 and GFR 4. He reports a proceeding episode of acute bronchitis in May. Renal ultrasound did not reveal any chronic kidney disease or hydronephrosis of either kidney. Prostate enlargement was visualized but he reports that he is relatively asymptomatic from this standpoint. There is a 2.5 cm cyst of the right kidney. 8mm left renal cyst is suggested. Cr has improved to 10.8 today. Potassium is 4.3. Random urine protein and sodium are elevated. Additional studies are pending. C4 is WNL. He has microscopic hematuria. Urine output is good. Nephrology is following and recommendations are greatly appreciated Underwent surgical insertion of tunneled HD catheter by general surgery on 09/24/19 Plan for hemodialysis today. Underwent dialysis on 09/24/19. Plan for renal biopsy in the near future following dialysis Continue to monitor kidney function Avoid nephrotoxic medications and renally dose medications (2) Diastolic dysfunction: Code(s): I51.89 - Other ill-defined heart diseases Status: Chronic Assessment and Plan: He had an echo 11/2018 which revealed normal EF 65-70% with grade 1 diastolic dysfunction and mild aortic valve stenosis. BNP was elevated at 7630. I suspect that his pulmonary edema is acute due to his acute renal failure. CXR on 09/23 shows worsened pulmonary edema. Echo reveals unchanged EF and moderate . He denies dyspnea or orthopnea. Continue to monitor Avoid IV fluids given volume status Hold off on diuresis given kidney function. Will reassess following dialysis. Weigh patient daily (3) Type 2 diabetes mellitus without complication, without long-term current use of insulin: Code(s): E11.9 - Type 2 diabetes mellitus without complications Status: Chronic Assessment and Plan: Blood sugars reviewed today and stable at 107. Continue accu-checks ACHS, SSI, and hypoglycemic protocol Continue to hold metformin due to acute renal failure (4) Essential (primary) hypertension: Code(s): I10 - Essential (primary) hypertension Status: Chronic Assessment and Plan: BP evaluated today and stable at 131/71. Continue amlodipine. Continue IV hydralazine PRN Continue to hold valsartan and HCTZ for now (5) Hypothyroidism: Qualifiers: Hypothyroidism type: unspecified Qualified Code(s): E03.9 - Hypothyroidism, unspecified Code(s): E03.9 - Hypothyroidism, unspecified Status: Chronic Assessment and Plan: TSH WNL. Continue levothyroxine (6) Mixed hyperlipidemia: Code(s): E78.2 - Mixed hyperlipidemia Status: Acute Assessment and Plan: Atorvastatin is on hold for now. (7) Acute hyperkalemia: Code(s): E87.5 - Hyperkalemia Status: Acute Assessment and Plan: Potassium was 5.5 at admission and increased to 6.1. He received kayexalate. Hyperkalemia is likey due to his acute renal failure. Potassium is stable today at 4.3. Continue to monitor potassium level (8) COVID-19 virus not detected: Status: Acute Assessment and Plan: COVID-19 testing is negative. The patient has no complaints of cough, fever, and chills. He has no leukocytosis. His chest CT suggests pulmonary edema which is consistent with his clinical presentation. Will continue to monitor closely. Azithromycin and ceftriaxone discontinued on 09/22. Subjective Date/time seen: 09/25/19 11:20 Interval history: Date of se
[2019-09-25 12:19] LABS: Glucose Point of Care 153 (65-105)
--- NOTE | 2019-09-25 16:56 | WPDANESPN ---
Anes - Prog Note Post-Op Date/Time: 09/25/19 16:56 Cardiovascular status: normal Respiratory status: normal Airway patency: baseline Mental status: baseline Post-Op hydration status: normal Vital Signs: Last Vital Signs Temp 97 F L 09/25/19 14:40 Pulse 80 09/25/19 16:45 Resp 18 09/25/19 14:40 BP 143/70 H 09/25/19 16:45 Pulse Ox 100 09/25/19 10:00 I/O: Intake & Output 09/25/19 09/25/19 09/25/19 07:59 15:59 23:59 Intake Total 250 480 Output Total 2050 Balance -1800 480 Laboratory Tests 09/25/19 05:15 09/25/19 05:15 09/22/19 09/23/19 09/24/19 16:08 00:13 19:54 WBC RBC Hgb Hct MCV MCH MCHC RDW Plt Count MPV Sodium Potassium Chloride Carbon Dioxide BUN Creatinine Estim Creat Clear Calc Estimated GFR Glucose POC Capillary Glucose 103 Calcium Total Bilirubin AST ALT Alkaline Phosphatase Total Protein Albumin Urine Eosinophils 2 Serum Immunofixation see below 09/25/19 09/25/19 09/25/19 05:15 05:15 07:47 WBC 7.1 RBC 3.91 L Hgb 11.4 L Hct 33.4 L MCV 85.4 MCH 29.2 MCHC 34.1 RDW 12.5 Plt Count 196 MPV 10.4 Sodium 128 L Potassium 4.3 Chloride 92 L Carbon Dioxide 22 BUN 66 H D Creatinine 10.80 H Estim Creat Clear Calc 6 Estimated GFR 5 L Glucose 107 POC Capillary Glucose 113 H Calcium 7.3 L Total Bilirubin 0.7 AST 25 ALT 11 Alkaline Phosphatase 66 Total Protein 7.0 Albumin 3.8 Urine Eosinophils Serum Immunofixation 09/25/19 12:13 WBC RBC Hgb Hct MCV MCH MCHC RDW Plt Count MPV Sodium Potassium Chloride Carbon Dioxide BUN Creatinine Estim Creat Clear Calc Estimated GFR Glucose POC Capillary Glucose 153 H Calcium Total Bilirubin AST ALT Alkaline Phosphatase Total Protein Albumin Urine Eosinophils Serum Immunofixation Post-procedural complaints: none Patient Feedback: Patient satisfied with anesthetic care.
--- NOTE | 2019-09-25 17:22 | P.PNNP_ITS ---
Progress Note: A&P Assessment and Plan (1) KIMBER (acute kidney injury): Code(s): N17.9 - Acute kidney failure, unspecified Status: Acute Assessment and Plan: * significant deterioration in the last 2 months * creatinine ~ 1.5mg/dl in June 2019 (presumably baseline) * UA with blood and protein noted * possible glomerulonephritis/autoimmune disease/vasculitis??? * plan renal biopsy for a definitive diagnosis - scheduled for tomorrow * however, given his elevated BUN and associated electrolyte issues, s/p HD cat heter placement with HD yesterday and today * good urine output noted (2) Acute hyperkalemia: Code(s): E87.5 - Hyperkalemia Status: Acute Assessment and Plan: * s/p medical management * better at this time * due to #1 (3) Hypertension: Code(s): I10 - Essential (primary) hypertension Status: Chronic Assessment and Plan: * reasonable control at this time * follow trend of hemodynamics (4) Metabolic acidosis: Code(s): E87.2 - Acidosis Status: Acute Assessment and Plan: * due to #1 * follow trend (5) Diabetes: Code(s): E11.9 - Type 2 diabetes mellitus without complications Status: Acute Assessment and Plan: * follow accuchecks * on SSI Will contine to follow. Subjective Date/time seen: 09/25/19 17:22 Unable to see yesterday as was in OR at the time of my visit; tolerating dialysis currently(seen on HD at 5:00PM); tolerated HD catheter placement and dialysis yesterday as well; no apparent distress voiced. Exam Narrative: Exam Narrative: General: WD/WN male in NAD Heart: normal S1 and S2; no rub Lungs: clear to auscultation Abdomen: soft, nontender, nondistended, positive bowel sounds Extremities: no cyanosis or clubbing; no edema Skin: warm and dry Objective Data Vital Signs Vital Signs: Vital Signs Temp Pulse Resp BP Pulse Ox 09/25/19 17:15 82 131/74 09/25/19 17:00 80 136/69 09/25/19 16:45 80 143/70 H 09/25/19 16:30 80 142/71 H 09/25/19 16:15 80 135/66 09/25/19 16:00 80 146/72 H 09/25/19 15:45 74 135/77 09/25/19 15:30 79 130/75 09/25/19 15:15 79 155/82 H 09/25/19 15:00 79 138/80 09/25/19 14:51 78 139/71 09/25/19 14:40 36.1 C L 76 18 148/77 H 09/25/19 10:00 36.0 C L 74 18 138/71 100 09/25/19 06:00 36.6 C 70 18 131/71 94 09/25/19 02:00 36.7 C 79 18 149/77 H 96 09/24/19 20:10 37.2 C 90 18 155/86 H 96 09/24/19 19:15 36.9 C 86 20 170/91 H 09/24/19 19:07 81 166/89 H 09/24/19 19:00 82 171/90 H 09/24/19 18:45 82 165/87 H 09/24/19 18:30 81 164/67 H 09/24/19 18:15 79 146/70 H 09/24/19 18:00 79 168/76 H 09/24/19 17:45 64 158/81 H 09/24/19 17:30 81 144/74 H Intake/Output Intake/Output: Intake & Output 09/22/19 09/23/19 09/24/19 09/25/19 23:59 23:59 23:59 23:59 Intake Total 1000 1820 720 980 Output Total 957 513 6208 3900 Balance 900 3109 -3123 -0833 Meds/Results Medications: Active Medications Generic Name Dose Route Start Last Admin Trade Name Michaelq LINETTE
--- NOTE | 2019-09-25 17:22 | PM.PNNEP ---
Progress Note: A&P Assessment and Plan (1) KIMBER (acute kidney injury): Code(s): N17.9 - Acute kidney failure, unspecified Status: Acute Assessment and Plan: significant deterioration in the last 2 months creatinine ~ 1.5mg/dl in June 2019 (presumably baseline) UA with blood and protein noted possible glomerulonephritis/autoimmune disease/vasculitis??? plan renal biopsy for a definitive diagnosis - scheduled for tomorrow however, given his elevated BUN and associated electrolyte issues, s/p HD catheter placement with HD yesterday and today good urine output noted (2) Acute hyperkalemia: Code(s): E87.5 - Hyperkalemia Status: Acute Assessment and Plan: s/p medical management better at this time due to #1 (3) Hypertension: Code(s): I10 - Essential (primary) hypertension Status: Chronic Assessment and Plan: reasonable control at this time follow trend of hemodynamics (4) Metabolic acidosis: Code(s): E87.2 - Acidosis Status: Acute Assessment and Plan: due to #1 follow trend (5) Diabetes: Code(s): E11.9 - Type 2 diabetes mellitus without complications Status: Acute Assessment and Plan: follow accuchecks on SSI Will contine to follow. Subjective Date/time seen: 09/25/19 17:22 Unable to see yesterday as was in OR at the time of my visit; tolerating dialysis currently(seen on HD at 5:00PM); tolerated HD catheter placement and dialysis yesterday as well; no apparent distress voiced. Exam Narrative: Exam Narrative: General: WD/WN male in NAD Heart: normal S1 and S2; no rub Lungs: clear to auscultation Abdomen: soft, nontender, nondistended, positive bowel sounds Extremities: no cyanosis or clubbing; no edema Skin: warm and dry Objective Data Vital Signs Vital Signs: Vital Signs Temp Pulse Resp BP Pulse Ox 09/25/19 17:15 82 131/74 09/25/19 17:00 80 136/69 09/25/19 16:45 80 143/70 H 09/25/19 16:30 80 142/71 H 09/25/19 16:15 80 135/66 09/25/19 16:00 80 146/72 H 09/25/19 15:45 74 135/77 09/25/19 15:30 79 130/75 09/25/19 15:15 79 155/82 H 09/25/19 15:00 79 138/80 09/25/19 14:51 78 139/71 09/25/19 14:40 36.1 C L 76 18 148/77 H 09/25/19 10:00 36.0 C L 74 18 138/71 100 09/25/19 06:00 36.6 C 70 18 131/71 94 09/25/19 02:00 36.7 C 79 18 149/77 H 96 09/24/19 20:10 37.2 C 90 18 155/86 H 96 09/24/19 19:15 36.9 C 86 20 170/91 H 09/24/19 19:07 81 166/89 H 09/24/19 19:00 82 171/90 H 09/24/19 18:45 82 165/87 H 09/24/19 18:30 81 164/67 H 09/24/19 18:15 79 146/70 H 09/24/19 18:00 79 168/76 H 09/24/19 17:45 64 158/81 H 09/24/19 17:30 81 144/74 H Intake/Output Intake/Output: Intake & Output 09/22/19 09/23/19 09/24/19 09/25/19 23:59 23:59 23:59 23:59 Intake Total 1000 1820 720 980 Output Total 265 087 6133 3900 Balance 900 1420 -3726 -2920 Meds/Results Medications: Active Medications Generic Name Dose Route Start Last Admin Trade Name Freq PRN Reason Stop Dose Admin Amlodipine Besylate 5 mg 09/23/19 09:00 09/25/19 08:22 Norvasc PO 5 mg QAM GAL Administration Dextrose 12.5 gm 09/22/19 19:03 Dextrose 50% Syringe IV PUSH PRN PRN Hypoglycemia Protocol Glucagon 1 mg 09/22/19 19:03 Glucagon For Inj IM PRN PRN Hypoglycemia Protocol Glucose 15 gm 09/22/19 19:03 Glutose 15 PO PRN PRN Hypoglycemia Protocol Hydralazine HCl 10 mg 09/22/19 18:50 Apresoline Hcl Inj IV PUSH Q8H PRN Blood Pressure - High Dextrose 1,000 mls @ 100 mls/hr 09/22/19 19:03 Dextrose 5% 1,000 Ml IVPB PRN PRN Hypoglycemia Protocol Albumin Human 50 mls @ 999 mls/hr 09/24/19 07:46 Albutein IVPB 10/24/19 07:47 Q10M PRN HYPOTENSION Insulin Aspar
[2019-09-25 17:43] LABS: Complement Total CH50 >60 U/mL (31-60)
[2019-09-25 18:43] LABS: Glucose Point of Care 102 (65-105)
[2019-09-25] MEDS: HEPARIN SODIUM 1,000 UNITS/ML VIAL 1000 UNITS IV PUSH (18:43)
[2019-09-25 20:39] LABS: Glucose Point of Care 146 (65-105)
[2019-09-26 02:00] VITALS: BP 145/77; PULSE 79; RESP 16; TEMP 36.6; O2SAT 95
[2019-09-26 03:43] LABS: Kappa\\Lambda Light Chains 1.85 (0.26-1.65); Lambda Light Chain 40.5 mg/L (5.7-26.3)
[2019-09-26 05:59] LABS: Basophils Absolute Auto 0.1 K/mm3 (0.0-0.1); Basophils Percent Auto 0.9 % (0.2-1.2); Eosinophils Absolute Auto 0.6 K/mm3 (0-0.3); Eosinophils Percent Auto 6.7 % (0-4.4); Hematocrit 36.4 % (42.0-52.0); Hemoglobin 12.4 g/dL (14.0-18.0); Immature Granulocyte Absolute 0.02 K/mm3 (0.00-0.031); Immature Granulocyte Percent A 0.2 % (0-0.5); Lymphocytes Absolute Auto 1.11 K/mm3 (0.9-3.2); Lymphocytes Percent Auto 12.5 % (18.3-44.2); Mean Corpuscular HGB Conc 34.1 g/dl (32-36); Mean Corpuscular Hemoglobin 29.8 pg (26-34); Mean Corpuscular Volume 87.5 fl (80-100); Mean Platelet Volume 9.7 fl (7.4-10.4); Monocytes Absolute Auto 1.4 K/mm3 (0.1-0.6); Monocytes Percent Auto 15.8 % (2.6-8.5); Neutrophils Absolute Auto 5.7 K/mm3 (1.3-6.7); Neutrophils Percent Auto 63.9 % (45.5-73.1); Platelet Count Result 272 k/mm3 (150-375); Red Blood Count 4.16 M/mm3 (4.6-6.20); Red Cell Distribution Width 12.7 % (11.5-14.5); White Blood Count 8.9 K/mm3 (4.5-10.0)
[2019-09-26 06:00] VITALS: BP 135/71; PULSE 76; RESP 16; TEMP 36.4; O2SAT 98
[2019-09-26] MEDS: LEVOTHYROXINE SODIUM 112 MCG TABLET PO (06:03)
[2019-09-26 06:06] LABS: INR 1.1; Prothrombin Time 13.6 Seconds (11.1-14.7)
[2019-09-26 07:24] LABS: Alanine Aminotransferase 10 U/L (4-50); Albumin Level 4.2 g/dL (3.5-5.1); Alkaline Phosphatase 75 U/L (38-126); Aspartate Amino Transferase 30 U/L (17-59); Bilirubin,Total 0.9 mg/dL (0.2-1.3); Blood Urea Nitrogen 40 mg/dL (9-20); Calcium 8.4 mg/dL (8.4-10.2); Carbon Dioxide 26 mmol/L (22-30); Chloride 94 mmol/L (98-107); Estimated CRCL calculation 9 ml/min; Estimated Glomerular Filt Rate 7; Glucose 109 mg/dL (75-110); Magnesium 2.1 mg/dL (1.6-2.3); Phosphorus 6.2 mg/dL (2.5-4.5); Potassium 4.9 mmol/L (3.4-5.0); Sodium 130 mmol/L (137-145)
[2019-09-26 08:07] LABS: Glucose Point of Care 137 (65-105)
--- NOTE | 2019-09-26 09:28 | PM.IMPN ---
Progress Note: A&P Assessment and Plan (1) Acute kidney failure, unspecified: Qualifiers: Acute renal failure type: unspecified Qualified Code(s): N17.9 - Acute kidney failure, unspecified Code(s): N17.9 - Acute kidney failure, unspecified Status: Acute Assessment and Plan: The patient presented with acute renal failure. His baseline Cr appears to be between 1.2-1.5. At presentation, Cr was 13 and GFR 4. He reports a proceeding episode of acute bronchitis in May. Renal ultrasound did not reveal any chronic kidney disease or hydronephrosis of either kidney. Prostate enlargement was visualized but he reports that he is relatively asymptomatic from this standpoint. There is a 2.5 cm cyst of the right kidney. 8mm left renal cyst is suggested. Cr has improved to 7.4 today. Potassium is 4.9. Random urine protein and sodium are elevated. C4 is WNL but total complement elevated. [place]/Lambda ratio is elevated. Urine output is good. Nephrology is following and recommendations are greatly appreciated Underwent surgical insertion of tunneled HD catheter by general surgery on 09/24/19 Underwent hemodialysis on 09/23 and 09/25/19. Scheduled for renal biopsy this afternoon. Continue to monitor kidney function Avoid nephrotoxic medications and renally dose medications (2) Diastolic dysfunction: Code(s): I51.89 - Other ill-defined heart diseases Status: Chronic Assessment and Plan: He had an echo 11/2018 which revealed normal EF 65-70% with grade 1 diastolic dysfunction and mild aortic valve stenosis. BNP was elevated at 7630. I suspect that his pulmonary edema is acute due to his acute renal failure. CXR on 09/23 shows worsened pulmonary edema. Echo reveals unchanged EF and moderate . Clinically, he is stable and asymptomatic. Continue to monitor Weigh patient daily (3) Type 2 diabetes mellitus without complication, without long-term current use of insulin: Code(s): E11.9 - Type 2 diabetes mellitus without complications Status: Chronic Assessment and Plan: Blood sugars reviewed today and stable at 109. Continue accu-checks ACHS, SSI, and hypoglycemic protocol Continue to hold metformin due to acute renal failure (4) Essential (primary) hypertension: Code(s): I10 - Essential (primary) hypertension Status: Chronic Assessment and Plan: BP evaluated today and stable at 135/71. Continue amlodipine. Continue IV hydralazine PRN Continue to hold valsartan and HCTZ for now (5) Hypothyroidism: Qualifiers: Hypothyroidism type: unspecified Qualified Code(s): E03.9 - Hypothyroidism, unspecified Code(s): E03.9 - Hypothyroidism, unspecified Status: Chronic Assessment and Plan: TSH WNL. Continue levothyroxine (6) Mixed hyperlipidemia: Code(s): E78.2 - Mixed hyperlipidemia Status: Acute Assessment and Plan: Atorvastatin is on hold for now. (7) Acute hyperkalemia: Code(s): E87.5 - Hyperkalemia Status: Acute Assessment and Plan: Potassium was 5.5 at admission and increased to 6.1. He received kayexalate. Hyperkalemia is likey due to his acute renal failure. Potassium is 4.9 today. Continue to monitor potassium level closely (8) COVID-19 virus not detected: Status: Acute Assessment and Plan: COVID-19 testing is negative. He has no leukocytosis and has remained afebrile. His chest CT suggests pulmonary edema which is consistent with his clinical presentation. Will continue to monitor closely. Azithromycin and ceftriaxone discontinued on 09/22. Subjective Date/time seen: 09/26/19 09:28 Interval history: Date of service: 09/26/19 Mr. Galdamez is feeling well today. He is awaiting renal biopsy this afternoon. He has no acute complaints today. He continues to endorse cough productive of sputum but notes it has improved from yesterday
[2019-09-26] MEDS: AMLODIPINE BESYLATE 5 MG TABLET PO (09:55)
[2019-09-26 11:28] LABS: HIV 1/2 Ab P24 Ag Result Negative (Negative)
[2019-09-26 13:00] VITALS: BP 145/85; PULSE 80; RESP 20; O2SAT 96
--- NOTE | 2019-09-26 13:01 | PC.NURSE ---
To Radiology for ultrasound guided biopsy per [stretcher [id number] ]
[2019-09-26 13:39] VITALS: BP 141/85; PULSE 77; RESP 20; O2SAT 94
[2019-09-26] MEDS: ROSUVASTATIN 10 MG TABLET 20 MG PO (15:49)
[2019-09-26] MEDS: metFORMIN HCL 500 MG TABLET 1000 MG PO (15:50)
--- NOTE | 2019-09-26 16:31 | P.PNNP_ITS ---
Progress Note: A&P Assessment and Plan (1) KIMBER (acute kidney injury): Code(s): N17.9 - Acute kidney failure, unspecified Status: Acute Assessment and Plan: * significant deterioration in the last 2 months * creatinine ~ 1.5mg/dl in June 2019 (presumably baseline) * UA with blood and protein noted * possible glomerulonephritis/autoimmune disease/vasculitis??? * s/p renal biopsy today for a definitive diagnosis * however, given his elevated BUN and associated electrolyte issues, s/p HD catheter placement with HD yesterday and day before yesterday - hold HD today * good urine output noted (2) Acute hyperkalemia: Code(s): E87.5 - Hyperkalemia Status: Acute Assessment and Plan: * s/p medical management * better at this time * due to #1 (3) Hypertension: Code(s): I10 - Essential (primary) hypertension Status: Chronic Assessment and Plan: * reasonable control at this time * follow trend of hemodynamics (4) Metabolic acidosis: Code(s): E87.2 - Acidosis Status: Acute Assessment and Plan: * due to #1 * follow trend (5) Diabetes: Code(s): E11.9 - Type 2 diabetes mellitus without complications Status: Acute Assessment and Plan: * follow accuchecks * on SSI Will contine to follow. Subjective Date/time seen: 09/26/19 16:31 Tolerated dialysis yesterday and renal biopsy earlier today; continue to make good urine output and appears in no distress; no issues or problems overnight or earlier today. Exam Narrative: Exam Narrative: General: WD/WN male in NAD Heart: normal S1 and S2; no rub Lungs: clear to auscultation Abdomen: soft, nontender, nondistended, positive bowel sounds Extremities: no cyanosis or clubbing; no edema Skin: warm and intact Objective Data Vital Signs Vital Signs: Vital Signs Temp Pulse Resp BP Pulse Ox 09/26/19 13:39 77 20 141/85 H 94 09/26/19 13:00 80 20 145/85 H 96 09/26/19 06:00 36.4 C 76 16 135/71 98 09/26/19 02:00 36.6 C 79 16 145/77 H 95 09/25/19 22:00 36.7 C 84 16 139/75 95 09/25/19 18:30 36.6 C 83 16 153/82 H 09/25/19 18:22 83 153/73 H 09/25/19 18:15 81 153/70 H 09/25/19 18:00 85 145/74 H 09/25/19 17:45 83 161/84 H 09/25/19 17:30 81 146/77 H 09/25/19 17:15 82 131/74 09/25/19 17:00 80 136/69 09/25/19 16:45 80 143/70 H Intake/Output Intake/Output: Intake & Output 09/23/19 09/24/19 09/25/19 09/26/19 23:59 23:59 23:59 23:59 Intake Total 1820 720 980 450 Output Total 400 1850 3900 2825 Balance 9608 -9991 -9840 -0600 Meds/Results Medications: Active Medications Generic Name Dose Route Start Last Admin Trade Name Freq PRN Reason Stop Dose Admin Amlodipine Besylate 5 mg 09/23/19 09:00 09/26/19 09:55 Norvasc PO 5 mg QAM GAL Administration Dextrose 12.5 gm 09/22/19 19:03 Dextrose 50% Syringe IV PUSH PRN PRN Hypoglycemia Protocol Glucagon 1 mg 09/22/19 19:03 Glucagon For Inj IM PRN PRN Hypoglycemia Protocol Glucose 15 gm
--- NOTE | 2019-09-26 16:31 | PM.PNNEP ---
Progress Note: A&P Assessment and Plan (1) KIMBER (acute kidney injury): Code(s): N17.9 - Acute kidney failure, unspecified Status: Acute Assessment and Plan: significant deterioration in the last 2 months creatinine ~ 1.5mg/dl in June 2019 (presumably baseline) UA with blood and protein noted possible glomerulonephritis/autoimmune disease/vasculitis??? s/p renal biopsy today for a definitive diagnosis however, given his elevated BUN and associated electrolyte issues, s/p HD catheter placement with HD yesterday and day before yesterday - hold HD today good urine output noted (2) Acute hyperkalemia: Code(s): E87.5 - Hyperkalemia Status: Acute Assessment and Plan: s/p medical management better at this time due to #1 (3) Hypertension: Code(s): I10 - Essential (primary) hypertension Status: Chronic Assessment and Plan: reasonable control at this time follow trend of hemodynamics (4) Metabolic acidosis: Code(s): E87.2 - Acidosis Status: Acute Assessment and Plan: due to #1 follow trend (5) Diabetes: Code(s): E11.9 - Type 2 diabetes mellitus without complications Status: Acute Assessment and Plan: follow accuchecks on SSI Will contine to follow. Subjective Date/time seen: 09/26/19 16:31 Tolerated dialysis yesterday and renal biopsy earlier today; continue to make good urine output and appears in no distress; no issues or problems overnight or earlier today. Exam Narrative: Exam Narrative: General: WD/WN male in NAD Heart: normal S1 and S2; no rub Lungs: clear to auscultation Abdomen: soft, nontender, nondistended, positive bowel sounds Extremities: no cyanosis or clubbing; no edema Skin: warm and intact Objective Data Vital Signs Vital Signs: Vital Signs Temp Pulse Resp BP Pulse Ox 09/26/19 13:39 77 20 141/85 H 94 09/26/19 13:00 80 20 145/85 H 96 09/26/19 06:00 36.4 C 76 16 135/71 98 09/26/19 02:00 36.6 C 79 16 145/77 H 95 09/25/19 22:00 36.7 C 84 16 139/75 95 09/25/19 18:30 36.6 C 83 16 153/82 H 09/25/19 18:22 83 153/73 H 09/25/19 18:15 81 153/70 H 09/25/19 18:00 85 145/74 H 09/25/19 17:45 83 161/84 H 09/25/19 17:30 81 146/77 H 09/25/19 17:15 82 131/74 09/25/19 17:00 80 136/69 09/25/19 16:45 80 143/70 H Intake/Output Intake/Output: Intake & Output 09/23/19 09/24/19 09/25/19 09/26/19 23:59 23:59 23:59 23:59 Intake Total 1820 720 980 450 Output Total 400 1850 3900 6265 Balance 5755 -7376 -2976 -4232 Meds/Results Medications: Active Medications Generic Name Dose Route Start Last Admin Trade Name Freq PRN Reason Stop Dose Admin Amlodipine Besylate 5 mg 09/23/19 09:00 09/26/19 09:55 Norvasc PO 5 mg QAM GAL Administration Dextrose 12.5 gm 09/22/19 19:03 Dextrose 50% Syringe IV PUSH PRN PRN Hypoglycemia Protocol Glucagon 1 mg 09/22/19 19:03 Glucagon For Inj IM PRN PRN Hypoglycemia Protocol Glucose 15 gm 09/22/19 19:03 Glutose 15 PO PRN PRN Hypoglycemia Protocol Hydralazine HCl 10 mg 09/22/19 18:50 Apresoline Hcl Inj IV PUSH Q8H PRN Blood Pressure - High Dextrose 1,000 mls @ 100 mls/hr 09/22/19 19:03 Dextrose 5% 1,000 Ml IVPB PRN PRN Hypoglycemia Protocol Albumin Human 50 mls @ 999 mls/hr 09/24/19 07:46 Albutein IVPB 10/24/19 07:47 Q10M PRN HYPOTENSION Insulin Aspart 2 - 5 units 09/23/19 08:00 09/26/19 13:02 Novolog SUB-Q Not Given TIDWM GAL Protocol Levothyroxine Sodium 112 mcg 09/23/19 06:30 09/26/19 06:03 Synthroid PO 112 mcg DAILY@0630 GAL Administration Metformin HCl 1,000 mg 09/24/19 17:00 09/26/19 15:52 Glucophage PO Not Given BID COUNT INCLUDES THE [facility] Non-Formulary Medication 5 mg 09/25/19 09:00 Linagliptin [Tr
[2019-09-26 17:19] LABS: Glucose Point of Care 224 (65-105)
[2019-09-26] MEDS: INSULIN ASPART (*BKC) 100 UNITS/ML SUB-Q (17:24)
[2019-09-26 20:25] LABS: Glucose Point of Care 112 (65-105)
[2019-09-26 22:10] VITALS: BP 144/71; PULSE 73; RESP 20; TEMP 36.8; O2SAT 95
[2019-09-27 03:04] VITALS: BP 151/78; PULSE 69; RESP 20; TEMP 36.7; O2SAT 97
[2019-09-27 04:22] LABS: Albumin 3.1 g/dL (3.8-4.8); Alpha 1 Globulin 0.5 g/dL (0.2-0.3); Beta 1 Globulin 0.4 g/dL (0.4-0.6); Gamma Globulin 0.6 g/dL (0.8-1.7); Protein, Total 5.9 g/dL (6.1-8.1)
[2019-09-27] MEDS: LEVOTHYROXINE SODIUM 112 MCG TABLET PO (05:52)
[2019-09-27 06:00] VITALS: BP 149/65; PULSE 70; RESP 20; TEMP 36.4; O2SAT 96
[2019-09-27 06:06] LABS: Basophils Absolute Auto 0.1 K/mm3 (0.0-0.1); Basophils Percent Auto 0.6 % (0.2-1.2); Eosinophils Absolute Auto 0.9 K/mm3 (0-0.3); Eosinophils Percent Auto 10.5 % (0-4.4); Hematocrit 34.3 % (42.0-52.0); Hemoglobin 11.4 g/dL (14.0-18.0); Immature Granulocyte Absolute 0.03 K/mm3 (0.00-0.031); Immature Granulocyte Percent A 0.3 % (0-0.5); Lymphocytes Absolute Auto 0.69 K/mm3 (0.9-3.2); Lymphocytes Percent Auto 7.8 % (18.3-44.2); Mean Corpuscular HGB Conc 33.2 g/dl (32-36); Mean Corpuscular Hemoglobin 28.9 pg (26-34); Mean Corpuscular Volume 87.1 fl (80-100); Mean Platelet Volume 9.4 fl (7.4-10.4); Monocytes Absolute Auto 1.2 K/mm3 (0.1-0.6); Monocytes Percent Auto 13.8 % (2.6-8.5); Neutrophils Absolute Auto 5.9 K/mm3 (1.3-6.7); Platelet Count Result 243 k/mm3 (150-375); Red Blood Count 3.94 M/mm3 (4.6-6.20); Red Cell Distribution Width 12.4 % (11.5-14.5); White Blood Count 8.8 K/mm3 (4.5-10.0)
[2019-09-27 06:10] LABS: Potassium 4.1 mmol/L (3.4-5.0)
[2019-09-27 06:13] LABS: Alanine Aminotransferase 10 U/L (4-50); Albumin Level 3.9 g/dL (3.5-5.1); Alkaline Phosphatase 71 U/L (38-126); Aspartate Amino Transferase 26 U/L (17-59); Bilirubin,Total 0.6 mg/dL (0.2-1.3); Blood Urea Nitrogen 55 mg/dL (9-20); Calcium 7.8 mg/dL (8.4-10.2); Carbon Dioxide 24 mmol/L (22-30); Chloride 93 mmol/L (98-107); Estimated CRCL calculation 8 ml/min; Estimated Glomerular Filt Rate 6; Glucose 111 mg/dL (75-110); Sodium 133 mmol/L (137-145)
[2019-09-27] MEDS: AMLODIPINE BESYLATE 5 MG TABLET PO (08:24)
[2019-09-27] MEDS: metFORMIN HCL 500 MG TABLET 1000 MG PO ×2 (08:24→17:41)
[2019-09-27] MEDS: ROSUVASTATIN 10 MG TABLET 20 MG PO (08:25)
[2019-09-27 08:29] LABS: Glucose Point of Care 119 (65-105)
[2019-09-27 10:00] VITALS: BP 140/68; PULSE 68; RESP 18; TEMP 36.6; O2SAT 98
[2019-09-27 12:33] LABS: Glucose Point of Care 121 (65-105)
--- NOTE | 2019-09-27 13:25 | PM.IMPN ---
Progress Note: A&P Assessment and Plan (1) Acute kidney failure, unspecified: Qualifiers: Acute renal failure type: unspecified Qualified Code(s): N17.9 - Acute kidney failure, unspecified Code(s): N17.9 - Acute kidney failure, unspecified Status: Acute Assessment and Plan: The patient presented with acute renal failure. His baseline Cr appears to be between 1.2-1.5. At presentation, Cr was 13 and GFR 4. He reports a proceeding episode of acute bronchitis in May. Renal ultrasound did not reveal any chronic kidney disease or hydronephrosis of either kidney. Prostate enlargement was visualized but he reports that he is relatively asymptomatic from this standpoint. There is a 2.5 cm cyst of the right kidney. 8mm left renal cyst is suggested. Cr is 9.1 today. Random urine protein and sodium are elevated. C4 is WNL but total complement elevated. [employer]/Lambda ratio is elevated. Urine output is good. Nephrology is following and recommendations are greatly appreciated Underwent surgical insertion of tunneled HD catheter by general surgery on 09/24/19 Underwent hemodialysis on 09/23 and 09/25/19. Renal biopsy completed on 09/26/19. Pathology results pending. Continue to monitor kidney function Avoid nephrotoxic medications and renally dose medications (2) Diastolic dysfunction: Code(s): I51.89 - Other ill-defined heart diseases Status: Chronic Assessment and Plan: He had an echo 11/2018 which revealed normal EF 65-70% with grade 1 diastolic dysfunction and mild aortic valve stenosis. BNP was elevated at 7630. I suspect that his pulmonary edema is acute due to his acute renal failure. CXR on 09/23 shows worsened pulmonary edema. Echo reveals unchanged EF and moderate . Clinically, he is stable and asymptomatic. Continue to monitor Weigh patient daily (3) Type 2 diabetes mellitus without complication, without long-term current use of insulin: Code(s): E11.9 - Type 2 diabetes mellitus without complications Status: Chronic Assessment and Plan: Blood sugars reviewed today and stable at 111. Continue accu-checks ACHS, SSI, and hypoglycemic protocol Continue to hold metformin due to acute renal failure (4) Essential (primary) hypertension: Code(s): I10 - Essential (primary) hypertension Status: Chronic Assessment and Plan: BP evaluated today and stable at 149/65. Continue amlodipine. Continue IV hydralazine PRN Continue to hold valsartan and HCTZ for now (5) Hypothyroidism: Qualifiers: Hypothyroidism type: unspecified Qualified Code(s): E03.9 - Hypothyroidism, unspecified Code(s): E03.9 - Hypothyroidism, unspecified Status: Chronic Assessment and Plan: TSH WNL. Continue levothyroxine (6) Mixed hyperlipidemia: Code(s): E78.2 - Mixed hyperlipidemia Status: Acute Assessment and Plan: Atorvastatin is on hold for now. (7) Acute hyperkalemia: Code(s): E87.5 - Hyperkalemia Status: Acute Assessment and Plan: Potassium was 5.5 at admission and increased to 6.1. He received kayexalate. Hyperkalemia is likey due to his acute renal failure. Potassium is 4.1 today. Continue to monitor potassium level closely (8) COVID-19 virus not detected: Status: Acute Assessment and Plan: COVID-19 testing is negative. He has no leukocytosis and has remained afebrile. His chest CT suggests pulmonary edema which is consistent with his clinical presentation. Will continue to monitor closely. Azithromycin and ceftriaxone discontinued on 09/22. Subjective Date/time seen: 09/27/19 13:25 Interval history: Date of service: 09/27/2019 Mr. Galdamez is doing well today. He reports he is somewhat nauseous today and attributes this to post nasal drainage that causes GI upset. His cough has improved. No chest pain or SOB. His appetite is adequate. He
--- NOTE | 2019-09-27 13:32 | P.PNNP_ITS ---
Progress Note: A&P Assessment and Plan (1) KIMBER (acute kidney injury): Code(s): N17.9 - Acute kidney failure, unspecified Status: Acute Assessment and Plan: * significant deterioration in the last 2 months * creatinine ~ 1.5mg/dl in June 2019 (presumably baseline) * UA with blood and protein noted * possible glomerulonephritis/autoimmune disease/vasculitis??? * s/p renal biopsy yesterday for a definitive diagnosis * however, given his elevated BUN and associated electrolyte issues, s/p HD catheter placement with HD on 09/23 and 09/24; holding HD today * follow pending serologies * good urine output noted * hopefully some preliminary renal biopsy results to help guide therapy/next step (2) Acute hyperkalemia: Code(s): E87.5 - Hyperkalemia Status: Acute Assessment and Plan: * s/p medical management * better at this time * due to #1 (3) Hypertension: Code(s): I10 - Essential (primary) hypertension Status: Chronic Assessment and Plan: * reasonable control at this time * follow trend of hemodynamics (4) Metabolic acidosis: Code(s): E87.2 - Acidosis Status: Acute Assessment and Plan: * due to #1 * follow trend (5) Diabetes: Code(s): E11.9 - Type 2 diabetes mellitus without complications Status: Acute Assessment and Plan: * follow accuchecks * on SSI Will contine to follow. Subjective Date/time seen: 09/27/19 13:32 Appears to be doing reasonably well at time time of my visit; tolerated renal biopsy yesterday without any issues; continues to make reasonable urine output (although BUN and creatinine up today by AM labs); no apparent distress at this time Exam Narrative: Exam Narrative: General: WD/WN male in NAD Heart: normal S1 and S2; no rub Lungs: clear to auscultation Abdomen: soft, nontender, nondistended, positive bowel sounds Extremities: no cyanosis or clubbing; no edema Skin: no rash or nodules Objective Data Vital Signs Vital Signs: Vital Signs Temp Pulse Resp BP Pulse Ox 09/27/19 06:00 36.4 C L 70 20 149/65 H 96 09/27/19 03:04 36.7 C 69 20 151/78 H 97 09/26/19 22:10 36.8 C 73 20 144/71 H 95 09/26/19 13:39 77 20 141/85 H 94 Intake/Output Intake/Output: Intake & Output 09/24/19 09/25/19 09/26/19 09/27/19 23:59 23:59 23:59 23:59 Intake Total 502 094 5046 790 Output Total 1850 3900 4223 825 [facility] -1130 -2920 -2875 -35 Meds/Results Medications: Active Medications Generic Name Dose Route Start Last Admin Trade Name Freq PRN Reason Stop Dose Admin Amlodipine Besylate 5 mg 09/23/19 09:00 09/27/19 08:24 Norvasc PO 5 mg QAM GAL Administration Dextrose 12.5 gm 09/22/19 19:03 Dextrose 50% Syringe IV PUSH PRN PRN Hypoglycemia Protocol Glucagon 1 mg 09/22/19 19:03 Glucagon For Inj IM PRN PRN Hypoglycemia Protocol Glucose 15 gm 09/22/19 19:03 Glutose 15 PO PRN PRN Hypoglycemia Protocol Hydralazine HCl 10 mg 09/22/19 18:50 Apresoline Hcl Inj IV PUSH Q8H PRN Blood Pressure - High
--- NOTE | 2019-09-27 13:32 | PM.PNNEP ---
Progress Note: A&P Assessment and Plan (1) KIMBER (acute kidney injury): Code(s): N17.9 - Acute kidney failure, unspecified Status: Acute Assessment and Plan: significant deterioration in the last 2 months creatinine ~ 1.5mg/dl in June 2019 (presumably baseline) UA with blood and protein noted possible glomerulonephritis/autoimmune disease/vasculitis??? s/p renal biopsy yesterday for a definitive diagnosis however, given his elevated BUN and associated electrolyte issues, s/p HD catheter placement with HD on 09/23 and 09/24; holding HD today follow pending serologies good urine output noted hopefully some preliminary renal biopsy results to help guide therapy/next step (2) Acute hyperkalemia: Code(s): E87.5 - Hyperkalemia Status: Acute Assessment and Plan: s/p medical management better at this time due to #1 (3) Hypertension: Code(s): I10 - Essential (primary) hypertension Status: Chronic Assessment and Plan: reasonable control at this time follow trend of hemodynamics (4) Metabolic acidosis: Code(s): E87.2 - Acidosis Status: Acute Assessment and Plan: due to #1 follow trend (5) Diabetes: Code(s): E11.9 - Type 2 diabetes mellitus without complications Status: Acute Assessment and Plan: follow accuchecks on SSI Will contine to follow. Subjective Date/time seen: 09/27/19 13:32 Appears to be doing reasonably well at time time of my visit; tolerated renal biopsy yesterday without any issues; continues to make reasonable urine output (although BUN and creatinine up today by AM labs); no apparent distress at this time Exam Narrative: Exam Narrative: General: WD/WN male in NAD Heart: normal S1 and S2; no rub Lungs: clear to auscultation Abdomen: soft, nontender, nondistended, positive bowel sounds Extremities: no cyanosis or clubbing; no edema Skin: no rash or nodules Objective Data Vital Signs Vital Signs: Vital Signs Temp Pulse Resp BP Pulse Ox 09/27/19 06:00 36.4 C L 70 20 149/65 H 96 09/27/19 03:04 36.7 C 69 20 151/78 H 97 09/26/19 22:10 36.8 C 73 20 144/71 H 95 09/26/19 13:39 77 20 141/85 H 94 Intake/Output Intake/Output: Intake & Output 09/24/19 09/25/19 09/26/19 09/27/19 23:59 23:59 23:59 23:59 Intake Total 611 119 0977 790 Output Total 1850 3900 4225 825 Balance -1130 -2920 -2875 -35 Meds/Results Medications: Active Medications Generic Name Dose Route Start Last Admin Trade Name Freq PRN Reason Stop Dose Admin Amlodipine Besylate 5 mg 09/23/19 09:00 09/27/19 08:24 Norvasc PO 5 mg QAM GAL Administration Dextrose 12.5 gm 09/22/19 19:03 Dextrose 50% Syringe IV PUSH PRN PRN Hypoglycemia Protocol Glucagon 1 mg 09/22/19 19:03 Glucagon For Inj IM PRN PRN Hypoglycemia Protocol Glucose 15 gm 09/22/19 19:03 Glutose 15 PO PRN PRN Hypoglycemia Protocol Hydralazine HCl 10 mg 09/22/19 18:50 Apresoline Hcl Inj IV PUSH Q8H PRN Blood Pressure - High Dextrose 1,000 mls @ 100 mls/hr 09/22/19 19:03 Dextrose 5% 1,000 Ml IVPB PRN PRN Hypoglycemia Protocol Albumin Human 50 mls @ 999 mls/hr 09/24/19 07:46 Albutein IVPB 10/24/19 07:47 Q10M PRN HYPOTENSION Insulin Aspart 2 - 5 units 09/23/19 08:00 09/27/19 12:37 Novolog SUB-Q Not Given TIDWM GAL Protocol Levothyroxine Sodium 112 mcg 09/23/19 06:30 09/27/19 05:52 Synthroid PO 112 mcg DAILY@0630 GAL Administration Metformin HCl 1,000 mg 09/24/19 17:00 09/27/19 08:24 Glucophage PO 1,000 mg BID GAL Administration Non-Formulary Medication 5 mg 09/25/19 09:00 Linagliptin [Tradjenta] PO 10/25/19 09:01 QAM GAL Rosuvastatin Calcium 20 mg 09/25/19 09:00 09/27/19 08:25 Crestor PO 20 mg DAILY GAL Administration Ra
[2019-09-27 16:59] LABS: Creatinine, Random Urine 26 mg/dL (20-320); Total Protein/Creatinine Ratio 2615 mg/g creat (22-128)
[2019-09-27 17:31] LABS: Glucose Point of Care 117 (65-105)
[2019-09-27 17:32] VITALS: BP 134/69; PULSE 73; RESP 18; TEMP 36.7; O2SAT 97
[2019-09-27 18:00] VITALS: BP 137/65; PULSE 72; RESP 18; TEMP 36.7; O2SAT 100
[2019-09-27 21:45] LABS: Glucose Point of Care 100 (65-105)
[2019-09-27 22:00] VITALS: BP 140/72; PULSE 70; RESP 20; TEMP 36.6; O2SAT 95
[2019-09-28] VITALS (17 sets, daily range): BP systolic 124–161; BP diastolic 67–83; PULSE 69–88; RESP 16–20; TEMP 36–37.1; O2SAT 97–100
[2019-09-28] MEDS: LEVOTHYROXINE SODIUM 112 MCG TABLET PO (05:45)
[2019-09-28 07:07] LABS: Hematocrit 37.4 % (42.0-52.0); Hemoglobin 12.5 g/dL (14.0-18.0); Mean Corpuscular HGB Conc 33.4 g/dl (32-36); Mean Corpuscular Hemoglobin 29.3 pg (26-34); Mean Corpuscular Volume 87.8 fl (80-100); Mean Platelet Volume 9.2 fl (7.4-10.4); Platelet Count Result 315 k/mm3 (150-375); Red Blood Count 4.26 M/mm3 (4.6-6.20); Red Cell Distribution Width 12.4 % (11.5-14.5); White Blood Count 10.8 K/mm3 (4.5-10.0)
[2019-09-28 07:23] LABS: Alanine Aminotransferase 13 U/L (4-50); Albumin Level 4.5 g/dL (3.5-5.1); Alkaline Phosphatase 83 U/L (38-126); Aspartate Amino Transferase 35 U/L (17-59); Bilirubin,Total 0.6 mg/dL (0.2-1.3); Blood Urea Nitrogen 72 mg/dL (9-20); Calcium 8.3 mg/dL (8.4-10.2); Carbon Dioxide 15 mmol/L (22-30); Chloride 91 mmol/L (98-107); Estimated CRCL calculation 6 ml/min; Estimated Glomerular Filt Rate 5; Glucose 90 mg/dL (75-110); Potassium 4.6 mmol/L (3.4-5.0); Sodium 132 mmol/L (137-145)
[2019-09-28] MEDS: ROSUVASTATIN 10 MG TABLET 20 MG PO (08:02)
[2019-09-28] MEDS: metFORMIN HCL 500 MG TABLET 1000 MG PO ×2 (08:03→16:10)
[2019-09-28] MEDS: AMLODIPINE BESYLATE 5 MG TABLET PO (08:04)
--- NOTE | 2019-09-28 11:00 | PM.PNNEP ---
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 creatinine ~ 1.5mg/dl in June 2019 (presumably baseline) based on above, kidney function should recover, but it may take weeks to months will need to continue outpatient dialysis on discharge (2) Acute hyperkalemia: Code(s): E87.5 - Hyperkalemia Status: Acute Assessment and Plan: s/p medical management better at this time due to #1 (3) Hypertension: Code(s): I10 - Essential (primary) hypertension Status: Chronic Assessment and Plan: reasonable control at this time follow trend of hemodynamics (4) Metabolic acidosis: Code(s): E87.2 - Acidosis Status: Acute Assessment and Plan: due to #1 follow trend (5) Diabetes: Code(s): E11.9 - Type 2 diabetes mellitus without complications Status: Acute Assessment and Plan: follow accuchecks on SSI Not opposed to discharge from renal perspective assuming otherwise medically stable; I believe his outpatient HD center/location has been finalized. Will continue to follow. Subjective Date/time seen: 09/28/19 11:00 Tolerating dialysis at the time of my visit (seen on HD at ~ 10:50AM); doing reasonably well; no new issues or problems to report overnight or this AM. Exam Narrative: Exam Narrative: General: WD/WN male in NAD Heart: normal S1 and S2; no rub Lungs: clear to auscultation Abdomen: soft, nontender, nondistended, positive bowel sounds Extremities: no cyanosis or clubbing; no edema Skin: warm and dry Objective Data Vital Signs Vital Signs: Vital Signs Temp Pulse Resp BP Pulse Ox 09/28/19 10:15 76 153/76 H 09/28/19 10:12 149/73 H 09/28/19 10:00 36.4 C L 73 20 157/77 H 09/28/19 08:00 69 16 97 09/28/19 06:00 36.6 C 69 16 152/82 H 97 09/28/19 02:00 36.6 C 70 20 136/75 97 09/27/19 22:00 36.6 C 70 20 140/72 95 09/27/19 18:00 36.7 C 72 18 137/65 100 09/27/19 17:32 36.7 C 73 18 134/69 97 Intake/Output Intake/Output: Intake & Output 09/25/19 09/26/19 09/27/19 09/28/19 23:59 23:59 23:59 23:59 Intake Total 980 1350 1500 720 Output Total 3900 4225 1675 800 Balance -2920 -2875 -175 -80 Meds/Results Medications: Active Medications Generic Name Dose Route Start Last Admin Trade Name Freq PRN Reason Stop Dose Admin Amlodipine Besylate 5 mg 09/23/19 09:00 09/28/19 08:04 Norvasc PO 5 mg QAM GAL Administration Dextrose 12.5 gm 09/22/19 19:03 Dextrose 50% Syringe IV PUSH PRN PRN Hypoglycemia Protocol Glucagon 1 mg 09/22/19 19:03 Glucagon For Inj IM PRN PRN Hypoglycemia Protocol Glucose 15 gm 09/22/19 19:03 Glutose 15 PO PRN PRN Hypoglycemia Protocol Hydralazine HCl 10 mg 09/22/19 18:50 Apresoline Hcl Inj IV PUSH Q8H PRN Blood Pressure - High Dextrose 1,000 mls @ 100 mls/hr 09/22/19 19:03 Dextrose 5% 1,000 Ml IVPB PRN PRN Hypoglycemia Protocol Albumin Human 50 mls @ 999 mls/hr 09/24/19 07:46 Albutein IVPB 10/24/19 07:47 Q10M PRN HYPOTENSION Insulin Aspart 2 - 5 units 09/23/19 08:00 09/28/19 08:01 Novolog SUB-Q Not Given TIDWM GAL Protocol Levothyroxine Sodium 112 mcg 09/23/19 06:30 09/28/19 05:45 Synthroid PO 112 mcg DAILY@0630 GAL Administration Loratadine 10 mg 09/28/19 09:00 Claritin PO QAM GAL Metformin HCl 1,000 mg 09/24/19 17:00 09/28/19 08:03 Glucophage PO 1,000 mg BID GAL Administration Non-Formulary Medica
[2019-09-28 11:59] LABS: Glucose Point of Care 90 (65-105)
[2019-09-28 13:53] LABS: Hemoglobin A1C 7.6 % (<5.7)
[2019-09-28] MEDS: LORATADINE 10 MG TABLET PO (16:08)
[2019-09-28 17:51] LABS: Glucose Point of Care 113 (65-105)
--- NOTE | 2019-09-28 19:37 | PC.NURSE ---
JANA ORDERED PER VERBAL THAT PT BE GIVEN ONE TOUCH FOR HOME TO MONITOR BLOOD SUGAR ONE SENT WITH PT.
--- NOTE | 2019-09-29 08:49 | PM.DS ---
DS: Diagnosis Admitting Diagnosis Admitting Diagnosis: Acute kidney failure, unspecified Discharge Diagnosis (1) Acute kidney failure, unspecified: Qualifiers: Acute renal failure type: unspecified Qualified Code(s): N17.9 - Acute kidney failure, unspecified Code(s): N17.9 - Acute kidney failure, unspecified Status: Acute Assessment and Plan: The patient presented with acute renal failure. His baseline Cr appears to be between 1.2-1.5. At presentation, Cr was 13 and GFR 4. He reports a proceeding episode of acute bronchitis in May. Renal ultrasound did not reveal any chronic kidney disease or hydronephrosis of either kidney. Prostate enlargement was visualized but he reports that he is relatively asymptomatic from this standpoint. There is a 2.5 cm cyst of the right kidney. 8mm left renal cyst is suggested. Cr 10.9 on day of discharge. Random urine protein and sodium are elevated. C4 is WNL but total complement elevated. [place]/Lambda ratio is elevated. Urine output is good. Monitored by nephrology Underwent surgical insertion of tunneled HD catheter by general surgery on 09/24/19 Underwent hemodialysis on 09/23, 09/24, and 09/28/19 Renal biopsy completed on 09/26/19. 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 BNP was elevated at 7630. I suspect that pulmonary edema was acute due to his acute renal failure. CXR on 09/23 shows worsened pulmonary edema. Echo reveals unchanged EF and moderate . Clinically, remained stable and asymptomatic. (3) Type 2 diabetes mellitus without complication, without long-term current use of insulin: Code(s): E11.9 - Type 2 diabetes mellitus without complications Status: Chronic Assessment and Plan: Blood sugars reviewed during stay and were well controlled. A1c is 7.6. Managed with SSI. Metformin held due to KIMBER. Will continue linagliptin outpatient. (4) Essential (primary) hypertension: Code(s): I10 - Essential (primary) hypertension Status: Chronic Assessment and Plan: BP monitored and was moderately elevated. Valsartan and HCTZ held due to KIMBER. Will begin 10 mg amlodipine outpatient and will monitor BP at home 3-4 times/week until PCP follow up (5) Hypothyroidism: Qualifiers: Hypothyroidism type: unspecified Qualified Code(s): E03.9 - Hypothyroidism, unspecified Code(s): E03.9 - Hypothyroidism, unspecified Status: Chronic Assessment and Plan: TSH WNL. (6) Mixed hyperlipidemia: Code(s): E78.2 - Mixed hyperlipidemia Status: Acute Assessment and Plan: Continue rosuvastatin outpatient (7) Acute hyperkalemia: Code(s): E87.5 - Hyperkalemia Status: Acute Assessment and Plan: Improved with kayexalate. Potassium 4.6 on day of discharge. (8) COVID-19 virus not detected: Status: Acute Assessment and Plan: COVID-19 testing is negative. Azithromycin and ceftriaxone discontinued on 09/22. DS: Summary Hospital Course Reason for hospitalization: Nausea and Vomiting Hospital Course: Date of admission: 09/22/19 Date of discharge: 09/28/19 Shane Galdamez is a 79 year old male with a PMH significant for HTN, Type 2 DM, hyperlipidemia, aortic stenosis, and BPH who presented to the emergency department on 09/22/19 with complaints of nausea, vomiting, and cough. At presentation, VSS, Sodium 132, K 5.5, Cl 97, CO2 17, BUN 78, and Cr 13.0. He was admitted to the hospitalist service and nephrology was consulted. Urology saw patient and felt his KIMBER was not urologic i
[2019-09-30 12:25] LABS: Anti Glomerular Basement Memb <1.0 AI (<1.0)
[2019-09-30 17:39] LABS: Cryoglobulin, QL Negative (Negative)
[2019-09-30 21:37] LABS: ANCA Screen Negative (Negative)
== END 2019-09-28 18:30 | disposition home or self-care (01) | DRG 673 ==
LOC: ANHED 11:27 → ANH3MEDSUR 13:13
PROVIDERS: Internal Medicine Nephrology; Nurse Practitioner; Physician Assistant; Surgery; Admitting Provider Hospitalist; Emergency Provider Emergency Medicine; PCP Internal Medicine; Visit Provider Internal Medicine
PROC: 0JH60XZ Insertion of Tunneled Vascular Access Device into Chest Subcutaneous Tissue and Fascia, Open Approach (ICD-10-PCS; CPT 36908; principal; 2019-09-24 10:00)
DX: N17.0 Acute kidney failure with tubular necrosis (principal); J18.9 Pneumonia, unspecified organism; I50.31 Acute diastolic (congestive) heart failure; E87.2 Acidosis; I11.0 Hypertensive heart disease with heart failure; J81.0 Acute pulmonary edema; Z20.828 Contact with and (suspected) exposure to other viral communicable diseases; N28.1 Cyst of kidney, acquired; E03.9 Hypothyroidism, unspecified; E11.9 Type 2 diabetes mellitus without complications; E87.5 Hyperkalemia; N40.0 Benign prostatic hyperplasia without lower urinary tract symptoms; F17.210 Nicotine dependence, cigarettes, uncomplicated; Z85.828 Personal history of other malignant neoplasm of skin; E66.9 Obesity, unspecified; Z68.31 Body mass index [BMI] 31.0-31.9, adult
CPT/HCPCS: 36415; 50200; 71045; 74176; 76775; 76942; 77001; 80048; 80053; 80061; 80069; 80074; 81001; 82550; 82570; 82595; 83036; 83520; 83605; 83690; 83735; 83880; 83883; 84100; 84155; 84156; 84165; 84166; 84300; 84439; 84443; 84480; 84484; 85025; 85027; 85610; 85652; 85730; 85999; 86021; 86038; 86060; 86160; 86162; 86225; 86235; 86334; 86703; 86706; 87040; 87070; 87086; 87205; 87635; 88300; 88329; 93005; 93306; 96361; 96374; 99291; A9270; C1750; G0257; G0432; J0456; J0690; J0696; J1644; J1815; J1940; J2704; J7030; J7040; J7060; U0003

== ENCOUNTER 2019-12-09 00:35 | Outpatient (CLI) | payer MEDICARE, BC, SELFPAY ==
[2019-12-09 10:36] LABS: Blood Urea Nitrogen 38 mg/dL (9-20); Calcium 9.2 mg/dL (8.4-10.2); Carbon Dioxide 26 mmol/L (22-30); Chloride 100 mmol/L (98-107); Estimated Glomerular Filt Rate 31; Glucose 212 mg/dL (75-110); Potassium 4.1 mmol/L (3.4-5.0); Sodium 133 mmol/L (137-145)
[2019-12-09 18:41] LABS: SARS-CoV-2 RNA PCR Negative
== END 2019-12-09 00:36 | disposition home or self-care (01) ==
PROVIDERS: Anesthesiology; PCP Internal Medicine; Visit Provider Surgery
DX: E11.9 Type 2 diabetes mellitus without complications (principal); Z01.812 Encounter for preprocedural laboratory examination; Z11.59 Encounter for screening for other viral diseases
CPT/HCPCS: 36415; 80048; 87635; C9803; U0003

== ENCOUNTER 2019-12-11 02:02 | Day surgery (SDC) | payer MEDICARE, BC, SELFPAY ==
[2019-12-06 13:07] VITALS: BMI 27.6
--- NOTE | 2019-12-06 13:12 | PC.NURSE ---
PT STATES NO CHANGE IN HEALTH HX SINCE AUGUST 2019
[2019-12-11 12:00] VITALS: BP 149/64; PULSE 62; RESP 18; TEMP 36.2; O2SAT 100
[2019-12-11] MEDS: LACTATED RINGERS 1,000 ML 30 ML IV CONT ×2 (12:15→14:45)
[2019-12-11 12:32] LABS: Glucose Point of Care 124 (65-105)
--- NOTE | 2019-12-11 13:09 | PM.IMHP ---
H&P: HPI History of Present Illness Chief complaint: Acute Kidney Injury Narrative: Shane Galdamez is a 79 year old male that had ARF requiring HD in late August. I placed RI TDC on 09/23, please see full operative report for details. Pt had HD for a few months thru TDC s issue. Pt reports over last month his kidney fxn has recovered to the point he has no longer needed dialysis. Pt has seen nephrology and at this time they are requesting removal of TDC. Review of Systems Constitutional: Constitutional: Denies chills, Denies fatigue, Denies lethargy and Denies weakness Eyes: Eyes: Denies no additional eye complaints ENT: Reports Normal hearing present and Denies dysphagia Cardiovascular: Cardiovascular: Denies chest pain and Denies palpitations Respiratory: Respiratory: Denies cough, Denies dyspnea and Denies wheezing Gastrointestinal: Gastrointestinal: Denies abdominal pain, Denies bloating, Denies constipation, Denies nausea and Denies vomiting Genitourinary: Genitourinary: Denies hematuria, Denies dysuria, Denies urinary incontinence and Denies urinary urgency Musculoskeletal: Musculoskeletal: Reports no additional musculoskeletal complaints Integumentary/Breasts: Skin/Breast: Reports system reviewed and no additional complaints, except as docu Neurologic: Reports system reviewed and no additional complaints, except as documented Psychiatric: Psychiatric: Reports no additional psychiatric complaints PMFSH Past Medical History Medical History Acute kidney failure, unspecified Heart murmur Hypertension Type 2 diabetes mellitus without complication, without long-term current use of insulin Surgical History Surgical History H/O local excision of skin lesion 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 Unsure which type of cancer. S/P appendectomy S/P arthroscopic surgery of right knee S/P tonsillectomy and adenoidectomy Family History Family History Father Hypertension Family history of coronary artery disease Social History Social History Social History: The patient lives with his and he desires to have her as the durable power health care attorney for healthcare. He desires to be a full code. They have 3 children together. He is retired from the [employer]. Patient used to smoke a pipe but stated he did and ?inhale . He denies any alcohol, marijuana use, or illicit drugs. He said he stop smoking a pipe in the 80s. Smoking status: Former smoker Tobacco type: pipe Smoking end date: 05/29/69 Alcohol intake: current Drinks per week: 1 Alcohol use details: WINE ONE DRINK PER MONTH Substance use: never Living arrangements: with family Gender identity (if verbalized by the patient): Male Spiritual care concerns: No Agree to blood products: Yes Meds Home Medications and Allergies Home Medications Medication Instructions Recorded Confirmed Type rosuvastatin 20 mg PO DAILY 09/22/19 12/11/19 History amlodipine 10 mg tablet 10 mg PO DAILY #90 tablet 10/02/19 12/11/19 Rx blood-glucose meter #1 each 10/11/19 12/11/19 History lancets #50 each 10/11/19 12/11/19 History lancets 32 gauge #100 each 10/11/19 12/11/19 Rx levothyroxine 112 mcg tablet See Rx Instructions .ROUTE 10/29/19 12/11/19 Rx .COMPLEX #90 tablet linagliptin 5 mg tablet 5 mg PO QAM #90 tablet 10/29/19 12/11/19 Rx blood sugar diagnostic #200 each 11/06/19 12/11/19 Rx cholecalciferol (vitamin D3) 25 mcg PO DAILY 12/06/19 12/11/19 History Allergies Allergy/AdvReac Type Severity Reaction Status Date / Time No Known Allergies Allergy Verified 12/11/19 12:35 Exam Const: General: no acute distress HENMT: Mouth: Yes moist mucous membranes Eyes: Pupils: Equal, round and reactive pupils present
--- NOTE | 2019-12-11 13:23 | WPDANESEPPF ---
Anes - Initial Pre Proc Eval Procedure: Operation Date: 12/11/19 13:30 Proposed Procedures p Removal Tunneled Dialysis Catheter - Judith Trinh MD Date/Time: 12/11/19 13:23 Surgeon: Judith Trinh MD Pre Op Diagnosis: Acute Kidney Injury Patient Data Age: 79 Gender: M Height: 5 ft 10 in Weight: 87.15 kg Allergies Allergy/AdvReac Type Severity Reaction Status Date / Time No Known Allergies Allergy Verified 12/11/19 12:35 Home Medications Medication Instructions Recorded Confirmed Type rosuvastatin 20 mg PO DAILY 09/22/19 12/11/19 History amlodipine 10 mg tablet 10 mg PO DAILY #90 tablet 10/02/19 12/11/19 Rx blood-glucose meter #1 each 10/11/19 12/11/19 History lancets #50 each 10/11/19 12/11/19 History lancets 32 gauge #100 each 10/11/19 12/11/19 Rx levothyroxine 112 mcg tablet See Rx Instructions .ROUTE 10/29/19 12/11/19 Rx .COMPLEX #90 tablet linagliptin 5 mg tablet 5 mg PO QAM #90 tablet 10/29/19 12/11/19 Rx blood sugar diagnostic #200 each 11/06/19 12/11/19 Rx cholecalciferol (vitamin D3) 25 mcg PO DAILY 12/06/19 12/11/19 History Laboratory Tests 12/11/19 12:26 POC Capillary Glucose 124 mg/dl H mg/dl (65-105) Patient hx anesthesia problems: none Family hx anesthesia problems: none PMFSH Past Medical History Medical History Acute kidney failure, unspecified Heart murmur Hypertension Type 2 diabetes mellitus without complication, without long-term current use of insulin Surgical History Surgical History H/O local excision of skin lesion 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 Unsure which type of cancer. S/P appendectomy S/P arthroscopic surgery of right knee S/P tonsillectomy and adenoidectomy Family History Family History Father Hypertension Family history of coronary artery disease Social History Social History Social History: The patient lives with his and he desires to have her as the durable power personal injury attorney for healthcare. He desires to be a full code. They have 3 children together. He is retired from the [employer]. Patient used to smoke a pipe but stated he did and ?inhale . He denies any alcohol, marijuana use, or illicit drugs. He said he stop smoking a pipe in the 80s. Smoking status: Former smoker Tobacco type: pipe Smoking end date: 05/29/69 Alcohol intake: current Drinks per week: 1 Alcohol use details: WINE ONE DRINK PER MONTH Substance use: never Living arrangements: with family Gender identity (if verbalized by the patient): Male Spiritual care concerns: No Agree to blood products: Yes Anes - Eval Final PreProcedure Day of Procedure 12/11/19 13:23 Patient weight: overweight Heart: regular rate and rhythm Lungs: clear to auscultation Airway: Mallampati scale class II Neurological: alert and oriented Last oral intake: >/= 8 hours ASA classification: III Emergent: no Anesthetic plan: proceed Anesthesia type and monitoring: general GIVS and standard monitoring Informed Consent: The patient's anesthetic plan and its attendant risks and benefits were discussed with the patient/family/POA. Questions were solicited and answers provided to the satisfaction of the patient/family/POA.
--- NOTE | 2019-12-11 13:59 | PM.PROC ---
Procedure Note - Detailed Date of procedure: 12/11/19 Pre-op diagnosis: Acute Kidney Injury Post-op diagnosis: same Procedure performed: removal of right internal jugular tunneled hemodialysis catheter Description of procedure: The patient was taken to the operating room and placed the supine position. After adequate induction of mac anesthesia, the patient was prepped draped normal sterile fashion. A time-out was then done to verify the patient's identity, as well as the procedure being performed. I then localized the area in and around the catheter exit site in the right chest. Once locally anesthetized, I used a hemostat to bluntly dissect around the cuff in all directions. Once I was able to free up the adhesions around the cuff, I was able to gently place traction on the catheter and removed the catheter in full. I then held pressure on the right internal jugular vein for approximately 5 minutes. There was no bleeding noted. Sterile dressing was then placed up the right chest exit site. The patient tolerated the procedure well and will be transferred to the recovery room in stable condition. Anesthesia: MAC and local Surgeon: Judith Trinh MD Estimated blood loss (mL): 5 Drains: No Packing: No Pathology: none sent Complications: No immediate complications Condition: stable Disposition: PACU Findings: 28 cm RIJ TDC removed in full
[2019-12-11 14:00] VITALS: BP 116/62; PULSE 76; RESP 12; TEMP 36.3; O2SAT 97
[2019-12-11 14:30] VITALS: BP 129/65; PULSE 74; RESP 15
== END 2019-12-11 15:00 | disposition home or self-care (01) ==
PROVIDERS: PCP Internal Medicine; Visit Provider Surgery
PROC: (CPT 49422; principal; 2019-12-11 13:30)
DX: Z45.2 Encounter for adjustment and management of vascular access device (principal); Z87.448 Personal history of other diseases of urinary system; I11.0 Hypertensive heart disease with heart failure; I50.9 Heart failure, unspecified; E11.9 Type 2 diabetes mellitus without complications; Z87.891 Personal history of nicotine dependence; Z79.84 Long term (current) use of oral hypoglycemic drugs
CPT/HCPCS: 36589; J2704; J3010; J7120

== ENCOUNTER 2020-03-11 14:30 | Outpatient (RCR) | payer MEDICARE, BC, SELFPAY | END 2020-05-07 12:48 | disposition home or self-care (01) | LOC: ANHDMC 14:30 | PROVIDERS: PCP Internal Medicine; Visit Provider Internal Medicine | DX: E11.65 Type 2 diabetes mellitus with hyperglycemia (principal); Z71.89 Other specified counseling | CPT/HCPCS: G0108; G0109 ==

== ENCOUNTER 2023-12-07 09:37 | Emergency (ER) | payer MEDICARE, BC, SELFPAY ==
[2023-12-07 09:49] VITALS: BP 130/53; PULSE 64; RESP 16; TEMP 36.5; O2SAT 100
[2023-12-07 10:21] LABS: EDUAAPPEAR Cloudy; EDUABILI Negative; EDUABLOOD 2+; EDUACOLOR1 Light/Pale; EDUAGLUCOSE 1+; EDUAKETONE Negative; EDUALEUKO 1+; EDUANITRATE Negative; EDUAPH 5.5; EDUAPROTEIN 3+; EDUAUROBILI 0.2
--- NOTE | 2023-12-07 10:26 | ED.MALEGU ---
HPI - Male Genitourinary General Chief complaint: Urogenital-Male Stated complaint: Uti Symptoms Time Seen by Provider: 12/07/23 09:55 Source: patient Mode of arrival: ambulatory Limitations: no limitations History of Present Illness HPI Narrative: Shane is an 83-year-old male patient presenting to the clinic today with complaints of difficulty urinating, painful urination, and leaking. He reports that over the past 2 days he has had increase overflow incontinence. States when he does go to the bathroom he does have a flow at the beginning of his stream and then he dribbles a lot. History of recurrent UTIs. History of BPH with laser therapy. Symptoms have been going on for 5 days. He denies any fever, chills, body aches, back pain, or abdominal pain. Does feel as though his bladder is somewhat distended. Related Data Home Medications Medication Instructions Recorded Confirmed blood-glucose meter (Easy-Touch #1 ea 10/11/19 10/11/23 Blood Glucose Meter) lancets #50 ea 10/11/19 10/11/23 cholecalciferol (vitamin D3) 25 25 mcg PO DAILY 12/06/19 12/07/23 mcg (1,000 unit) tablet omega-3 fatty acids 1,000 mg 1,000 mg PO DAILY 09/15/20 12/07/23 capsule (Fish Oil Concentrate) aspirin 81 mg tablet,delayed 81 mg PO DAILY 09/14/22 12/07/23 release (Adult Aspirin Regimen) amlodipine 5 mg tablet 5 mg PO DAILY 09/13/23 12/07/23 dapagliflozin propanediol 10 mg 10 mg PO DAILY 09/13/23 12/07/23 tablet (Farxiga) finasteride 5 mg tablet 5 mg PO DAILY 09/13/23 12/07/23 fluticasone propionate 50 2 spray intranasal DAILY PRN 09/13/23 12/07/23 mcg/actuation nasal Allergy Symptoms spray,suspension (Flonase Allergy Relief) glipizide 5 mg tablet 5 mg PO DAILY 09/13/23 12/07/23 tamsulosin 0.4 mg capsule 0.4 mg PO DAILY 09/13/23 12/07/23 triamcinolone acetonide 0.1 % 1 applic topical BID PRN Rash 09/13/23 12/07/23 topical ointment Allergies Allergy/AdvReac Type Severity Reaction Status Date / Time No Known Allergies Allergy Verified 12/07/23 09:47 Review of Systems Review of Systems: Pertinent positives per HPI. Patient denies any fever, chills, rash, headache, visual changes, dizziness, cough, runny nose, sore throat, shortness of breath, chest pain, palpitations, nausea, vomiting, diarrhea, constipation, abdominal pain, or any urinary issues. 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 Unsure which type of cancer. S/P appendectomy S/P arthroscopic surgery of right knee S/P tonsillectomy and adenoidectomy Family History Family History Father Hypertension Family history of coronary artery disease Social History Social History Social History: The patient lives with his and he desires to have her as the durable power attorney at law for healthcare. He desires to be a full code. They have 3 children together. He is retired from the [employer]. Patient used to smoke a pipe but stated he did and ?inhale . He denies any alcohol, marijuana use, or illicit drugs. He said he stop smoking a pipe in the 80s. Smoking status: Former smoker Tobacco type: pipe Second hand tobacco smoke exposure: No Smoking end date: 05/29/79 Alcohol intake: former Drinks per week: 1 Alcohol use details: WINE ONE DRINK PER MONTH Substance use: never Substance use type: does not use Do You Feel Safe in your Home?: Yes Lack of Transportation: No Lack of Food: Never True
== END 2023-12-07 10:14 | disposition home or self-care (01) ==
PROVIDERS: Emergency Provider Nurse Practitioner Family; PCP Family Medicine
DX: N30.01 Acute cystitis with hematuria (principal); Z87.891 Personal history of nicotine dependence; R01.0 Benign and innocent cardiac murmurs; I10 Essential (primary) hypertension; E11.9 Type 2 diabetes mellitus without complications; Z95.2 Presence of prosthetic heart valve; Z79.82 Long term (current) use of aspirin
CPT/HCPCS: 81003; 87086; 99213; G0463